=== PATIENT | female | born 1930 | race Caucasian/White ===

== ENCOUNTER 2017-10-24 10:28 | Outpatient (CLI) | payer MEDICARE, MEDICAID ==
--- NOTE | 2017-10-24 15:07 | RAD ---
EXAM: CHEST 2 VIEWS: COMPARISON: 10/03/12, 05/31/14. HISTORY: Dyspnea. FINDINGS: Atherosclerosis of the aorta. Enlarged cardiac silhouette. Pulmonary vessels are prominent. Costop hrenic angles are clear. Lungs are hyperinflated. Interstitial prominence is noted. No pneumothora x. Indeterminate compression in the midthoracic spine. IMPRESSION: 1. Pulmonary vascular congestion with interstitial edema. 2. Indeterminate midthoracic spine compression fracture. POS: [facility]
== END 2017-10-24 10:29 | disposition home or self-care (01) ==
LOC: RAD 10:28
PROVIDERS: ATTEND Internal Medicine
DX: R06.00 Dyspnea, unspecified (principal); J81.1 Chronic pulmonary edema
CPT/HCPCS: 71020

== ENCOUNTER 2017-12-01 08:46 | Outpatient (CLI) | payer MEDICARE, OTHER, MEDICAID ==
[2017-12-01 09:44] LABS: Actual Bicarbonate (HCO3a) 34.8 mEq/L (22-26); Base Excess (BEa) 10.2 mEq/L (0 (+/-) 2.5); CO2 Tension 47.1 mmHg (35.0-45.0); Calcium, Ionized 1.1 mmol/L (1.12-1.30); Hematocrit-ABG 37.6 % (36.0-47.0); Hemoglobin (Hb) 10.4 g/dL (12.0-16.0); O2 Tension (PaO2) 65.8 mmHg (80.0-100.0); pH, Arterial 7.49 (7.35-7.45)
[2017-12-01 09:45] LABS: ALV-art Gradient 25.895 (0-20); Analyzer IN Cardio OR; Puncture Site RBA
--- NOTE | 2017-12-07 15:44 | PFT ---
PATIENT HISTORY: HEIGHT: 66 WEIGHT:262 SMOKER: NEVER HOW LONG: PACKS PER DAY PRODUCTIVE COUGH: LUNG DISEASE: PHYSICIAN INTERPRETATION FINAL REPORT: MODERATE REDUCTION OF EXPIRATORY FLOWS OF VITAL CAPACITY WITH OUT ANY IMPROVEMENT AFTER BRONCHODILATOR TOTAL LUNG CAPACITY LOW, RV DECREASED, TLC IMPRESSION: RESTRICTIVE PERMEABLE IMPAIRMENT. NO REDUCED DIFFUSION CAPACITY Spray Machine Loader: EDISON On Site Nurse: ASH VELEZ
== END 2017-12-01 08:47 | disposition home or self-care (01) ==
LOC: CP 08:46
PROVIDERS: ATTEND Internal Medicine
DX: R05 Cough (principal); Z79.01 Long term (current) use of anticoagulants
CPT/HCPCS: 36415; 82805; 85610; 94060; 94727; 94729

== ENCOUNTER 2018-03-15 12:19 | Inpatient (IN) | payer MEDICARE ==
[2018-03-15 13:17] LABS: #Monocytes 1.2 thou/uL (0.11-0.59); #Neutrophils 6.9 thou/uL (1.40-6.50); %Eosinophils 0.3 % (0.0-10.0); %Lymphocytes 10.7 % (21.0-51.0); Hemoglobin 8.9 g/dL (12.0-16.0); Mean Corpuscular HGB CONC 33.3 g/dL (32.0-36.0); Mean Corpuscular Hemoglobin 31.5 pg (27.0-31.0); Mean Corpuscular Volume 94.7 fl (81.0-99.0); Mean Platelet Volume 8.7 fL (7.4-10.4); Platelet Count 144 thou/uL (130-400); RBC Distribution Width 14.6 % (11.5-14.5); Red Blood Cell (RBC) Count 2.83 mill/uL (4.20-5.40); White Blood Cell (WBC) Count 9.1 thou/uL (4.8-10.8)
[2018-03-15 13:23] LABS: INR-International Normal Ratio 1.9; Prothrombin Time 22.2 SEC (12.0-14.7)
[2018-03-15 13:24] LABS: PTT 56.3 SEC (22.9-36.1)
[2018-03-15 13:47] LABS: CKMB 1.1 ng/mL (0-6.6); Troponin I 0.023 ng/mL (< 0.028)
--- NOTE | 2018-03-15 14:01 | RAD ---
UPRIGHT PORTABLE CHEST ONE VIEW: History: 87-year-old female with history of trouble standing. Comparison: 05-31-14 FINDINGS: Monitor leads overlie the chest. Cardiomegaly with some mild vascular congestion without confluent pn eumonia or overt edema. No significant pleural effusion. IMPRESSION: Cardiomegaly with mild vascular congestion, stable. No evidence of edema, pneumonia, or other acute p rocess. POS: [facility]
[2018-03-15 14:10] LABS: ALT (SGPT) 22 U/L (8-55); AST (SGOT) 42 U/L (5-34); Albumin 3.9 g/dL (3.4-4.8); Alkaline Phosphatase 85 U/L (40-150); Anion Gap 14 mmol/L (10-20); BUN (Urea Nitrogen) 32 mg/dL (9.8-20.1); Bilirubin, Total 1.2 mg/dL (0.2-1.2); CK (CPK) 49 U/L (29-168); Calc. Creatinine Clearance 0 mL/min (70-130); Calcium 10.1 mg/dL (7.8-10.44); Carbon Dioxide 22 mmol/L (23-31); Chloride 101 mmol/L (98-107); Estimated GFR-MDRD 43; Globulin 3.5 g/dL (2.4-3.5); Glucose 109 mg/dL (83-110); Potassium 5.3 mmol/L (3.5-5.1); Protein, Total 7.4 g/dL (6.0-8.3); Sodium 132 mmol/L (136-145)
--- NOTE | 2018-03-15 16:14 | CT ---
CT HEAD NONCONTRAST: History: Altered mental status. FINDINGS: No comparison. There is no evidence of acute intracranial hemorrhage or infarct. Diffuse cortical atr ophy and mild chronic ischemic small vessel disease are apparent. There is no mass effect or shift of midline structures. Calcification is apparent within the arterial structures of the brain base. IMPRESSION: 1. No acute intracranial abnormalities are demonstrated on noncontrast CT head. 2. Atherosclerosis. POS: [facility]
[2018-03-15 18:06] LABS: Troponin I 0.033 ng/mL (< 0.028)
[2018-03-15] MEDS ORDERED: Ondansetron ODT 4 MG TAB SL PRN (18:37)
[2018-03-15] MEDS ORDERED: Acetaminophen 325 MG TAB PO PRN ×2 (18:37→19:10)
[2018-03-15] MEDS ORDERED: Ondansetron HCl/PF 4 MG/2 ML Vial IVP PRN (18:37)
[2018-03-15 19:05] VITALS: BMI 39.6
[2018-03-15] MEDS ORDERED: Bisacodyl 5 MG TAB PO PRN (19:10)
[2018-03-15] MEDS ORDERED: Ondansetron ODT 4 MG TAB PO PRN (19:10)
[2018-03-15] MEDS ORDERED: Sodium Chloride 0.9% 1,000 ML IV SCH (19:15)
[2018-03-15] MEDS ORDERED: Albuterol Sulfate 2.5 mg/3 ml Neb NEB PRN (19:24)
--- NOTE | 2018-03-15 19:31 | PDOC.FPRHP ---
- History of Present Illness Chief Complaint: weakness, sleepy, not acting herself History of Present Illness: Patient is a 87yo F with PMH of CHF, asthma, hypothyroidism, and Afib who presents from [facility] for increased fatigue, weakness, and just not acting herself. Patient is a poor historian but reports generalized weakness and fatigue that started yesterday. She denies CP, SOB, orthopnea, fever, chills, dysuria, or dizziness upon sitting or standing. She does admit to some increased thirst over the last couple of days, stating "I just can't seem to get enough water." - Allergies/Adverse Reactions Allergies Allergy/AdvReac Type Severity Reaction Status Date / Time codeine Allergy Verified 03/15/18 19:18 - Home Medications Medication Instructions Recorded Confirmed Type Budesonide-Formoterol [Symbicort 1 puff INH BID 09/01/13 03/15/18 History 160-4.5] Citalopram [CeleXA] 20 mg PO DAILY 09/01/13 03/15/18 History Docusate [Colace] 100 mg PO BID 09/01/13 03/15/18 History HYDROcodone/Acetaminophen [[place]] 1 tab PO Q6HR PRN 09/01/13 03/15/18 History Dextromethorphan Polistirex 5 ml PO Q12HR PRN 03/15/14 03/15/18 History [Delsym 12 Hour Cough Relief] Ipratropium/Albuterol Sulfate 3 ml NEB BID 03/15/14 03/15/18 History [Duoneb 0.5 mg-3 mg/3 ml Soln] Ventolin HFA Inhaler 2 puff INH Q4H PRN #0 inh 03/18/14 03/15/18 Rx Benzonatate [Tessalon] 100 mg PO TID PRN 05/29/14 03/15/18 History Apixaban [Eliquis] 5 mg PO DAILY 03/15/18 03/15/18 History Azelastine HCl [Azelastine HCl 1 spray EA NARE BID 03/15/18 03/15/18 History 0.15% Nasal [place]] Fluticasone Propionate [Flonase 2 spray EA NARE DAILY 03/15/18 03/15/18 History Allergy Relief] Furosemide [Furosemide] 20 mg PO 1300 03/15/18 03/15/18 History Furosemide [Furosemide] 40 mg PO QAM 03/15/18 03/15/18 History Losartan Potassium [Losartan 25 mg PO DAILY 03/15/18 03/15/18 History Potassium] Metolazone [Metolazone] 5 mg PO DAILY PRN 03/15/18 03/15/18 History Pregabalin [Lyrica] 75 mg PO BID 03/15/18 03/15/18 History Simvastatin [Zocor] 10 mg PO HS 03/15/18 03/15/18 History Spironolactone [Spironolactone] 25 mg PO DAILY 03/15/18 03/15/18 History Zolpidem Tartrate [Zolpidem 5 mg PO HS PRN 03/15/18 03/15/18 History Tartrate] - History PMHx: 1. OA 2. dCHF 3. Asthma 4. Hypothyroidism 5. CAD 6. Breast CA, treated with mastectomy 7. Paroxysmal Afib 8. GERD 9. Insomnia 10. Seasonal Allergies PSHx: 1. Appendectomy 2. Cholecystectomy 3. Laminectomy 4. R Mastectomy FHx: none Social: Denies ETOH, tobacco, and drug use. Lives in [facility]. PCP: Kevin Mota, DO - Review of Systems General: reports: weight/appetite/sleep changes (Increased sleepiness), fatigue. denies: fever/chills Eyes: denies: eye pain, vision changes ENT: denies: nasal congestion, rhinorrhea Respiratory: denies: cough, congestion, shortness of breath, exercise intolerance Cardiovascular: denies: chest pain, palpitation, orthopnea Gastrointestinal: denies: nausea, vomiting, diarrhea, constipation, abdominal pain, GI bleeding Genitourinary: reports: incontinence. denies: dysuria, polyuria Skin: reports: lesions (Patient reports recent herpes zoster on L abdomen and lingering lesions). denies: rashes Musculoskeletal: reports: arthritis/arthralgias. denies: pain Neurological: reports: weakness. denies: numbness, syncope, seizure Psychological: denies: anxiety, depression - Vital signs BP: 118.40 HR: 41 RR: 15 Tmax: 97.4 Pox: 98% on RA Wt: 113kg - Physical Exam Constitutional: NAD, awake, alert and oriented -Constitutional: obese HEENT: normocephalic and atraumatic, PERRLA, EOMI, no scleral icterus, grossly normal vision, grossly normal hearing -HEENT: dry MM Neck: supple, no LAD Chest: no-tender to palpation Heart: normal S1/S2, no murmurs/rubs/gallops, pulses present -Heart: bradycardic, b/l edema (non-pitting) with overlying chronic venous stasis skin changes Lungs: CTAB, no respiratory distress, good air movement, no wheezing Abdomen: soft, non-tender, bowel sounds present Musculoskeletal: normal structure, normal tone Neurological: no focal deficit, CN II-XII intact Skin: no rash/lesions -Skin: poor skin turgor, cap refill > 2 sec, Redness, heat and ttp along b/l legs (R>L) Heme/Lymphatic: no unusual bruising or bleeding Psychiatric: normal mood and affect, intact recent and remote memory FMR H&P: Results - Labs Result Diagrams: 03/15/18 13:11 03/15/18 13:11 Lab results: WBC 9.1 thou/uL (4.8-10.8) 03/15/18 13:11 Hgb 8.9 g/dL (12.0-16.0) L 03/15/18 13:11 Hct 26.8 % (36.0-47.0) L 03/15/18 13:11 MCV 94.7 fl (81.0-99.0) 03/15/18 13:11 Plt Count 144 thou/uL (130-400) 03/15/18 13:11 Neutrophils % 76.0 % (42.0-75.0) H 03/15/18 13:11 Sodium 132 mmol/L (136-145) L 03/15/18 13:11 Potassium 5.3 mmol/L (3.5-5.1) H 03/15/18 13:11 Chloride 101 mmol/L (98-107) 03/15/18 13:11 Carbon Dioxide 22 mmol/L (23-31) L 03/15/18 13:11 BUN 32 mg/dL (9.8-20.1) H 03/15/18 13:11 Creatinine 1.18 mg/dL (0.6-1.1) H 03/15/18 13:11 Glucose 109 mg/dL (83-110) 03/15/18 13:11 Calcium 10.1 mg/dL (7.8-10.44) 03/15/18 13:11 Total Bilirubin 1.2 mg/dL (0.2-1.2) 03/15/18 13:11 AST 42 U/L (5-34) H 03/15/18 13:11 ALT 22 U/L (8-55) 03/15/18 13:11 Alkaline Phosphatase 85 U/L (40-150) 03/15/18 13:11 Creatine Kinase 49 U/L (29-168) 03/15/18 13:11 CK-MB (CK-2) 1.1 ng/mL (0-6.6) 03/15/18 13:11 B-Natriuretic Peptide 359.3 pg/mL (0-100) H 03/15/18 13:11 Serum Total Protein 7.4 g/dL (6.0-8.3) 03/15/18 13:11 Albumin 3.9 g/dL (3.4-4.8) 03/15/18 13:11 - EKG Interpretation EKG: Afib, rate 65. Incomplete RBBB FMR H&P: A/P - Problem List (1) Bradycardia Current Visit: Yes Status: Acute Code(s): R00.1 - BRADYCARDIA, UNSPECIFIED (2) Dehydration Current Visit: Yes Status: Acute Code(s): E86.0 - DEHYDRATION (3) Hyponatremia Current Visit: Yes Status: Acute Code(s): E87.1 - HYPO-OSMOLALITY AND HYPONATREMIA (4) Hyperkalemia Current Visit: Yes Status: Acute Code(s): E87.5 - HYPERKALEMIA (5) Asthma Current Visit: Yes Status: Acute Code(s): J45.909 - UNSPECIFIED ASTHMA, UNCOMPLICATED (6) Hypothyroidism Current Visit: Yes Status: Acute Code(s): E03.9 - HYPOTHYROIDISM, UNSPECIFIED (7) A-fib Current Visit: No Status: Acute Code(s): I48.91 - UNSPECIFIED ATRIAL FIBRILLATION (8) MYLES (acute kidney injury) Current Visit: No Status: Acute Code(s): N17.9 - ACUTE KIDNEY FAILURE, UNSPECIFIED (9) CAD (coronary artery disease) Current Visit: No Status: Acute Code(s): I25.10 - ATHSCL HEART DISEASE OF [place] CORONARY ARTERY W/O ANG PCTRS (10) CHF (congestive heart failure) Current Visit: No Status: Acute Code(s): I50.9 - HEART FAILURE, UNSPECIFIED (11) HTN (hypertension) Current Visit: No Status: Acute Code(s): I10 - ESSENTIAL (PRIMARY) HYPERTENSION (12) Normocytic anemia Current Visit: Yes Status: Acute Code(s): D64.9 - ANEMIA, UNSPECIFIED (13) Hx of breast cancer Current Visit: Yes Status: Acute Code(s): Z85.3 - PERSONAL HISTORY OF MALIGNANT NEOPLASM OF BREAST - Plan Bradycardia - Likely confounding factor to weakness. Hemodynamically stable at this point. Admit to tele with continuous monitoring. Ddx includes sepsis vs SSS - Consult cardiology - UA, urine cx, blood cx. lactic acid to evaluate for infectious source Dehydration - patient with hx of CHF, will give 250ml bolus. - hold morning lasix and spironolactone Elevated Cardiac Enzymes - 0.02 --> 0.03 - trend enzymes, patient with no chest discomfort MYLES - likely 2/2 dehydration - repeat in AM after fluid hydration Hyponatremia - serum and urine osm pending - recheck in the AM Hyperkalemia - hold K supplement - recheck in AM Normocytic Anemia - chronic - evaluate with Fe studies OA - continue home medications CHF - last EF reported in the hospital wnl (2013) - consider repeating echo Asthma - albuterol prn - duonebs scheduled per home regimen Hypothyroidism - continue home synthroid CAD - continue home statin and ASA Paroxysmal Afib - continue home Eliquis FMR H&P: Upper Level - Pertinent history 87 year old white female presents with weakness and lightheadedness sover the last few days. She also reports feeling tired. She was noted to have a heart rate in the 30s at her solution analyst visit last week. She has had a heart rate in the 40s and 50s recently at the nursing. She denies fevers, chills, chest pain, dyspnea, orthopnea, PND, abdominal pain, nausea, vomiting, diarrhea, dysuria, and polyuria PMH CHF, paroxysmal atrial fibrillation, HTN, CAD, hypothyroidism, depression, OA PSH Left mastectomy, hysterectomy, appendectomy, cholecystectomy, laminectomy - Pertinent findings Tmax 97.4 RR 15 HR 44 BP 123/56 O2 sats 95% on room air Weight 112 kg Physical Exam General: NAD. Awake, alert, and oriented x4. Eyes: EOMI, PERRL, nonicteric ENT: MMM, oropharynx CV: Bradycardic. Regular rhythm. No mumrumrs, rubs, gallops. Pulses full and equal in all 4 extremities Respiratory: CTAB. No wheezing, rales, or rhonchi. Breathing unlabored. Abd: NT, ND, no guarding or rebound Extremities: 1+ LE edema bilaterally. Equal movements bilaterally Skin: Left lower extremity slightly erythematous. No palpable lesions. Psych: Mood and affect appropriate. Judgment and insight intact. - Plan Date/Time: 03/15/181925 IKevin DO, have evaluated this patient and agree with findings/plan as outlined by policy intern resident. Pertinent changes/additions are listed here. 87 year old white female p/w: 1) Symptomatic bradycardia - Admit to telemetry. Consult cardiology. Avoid medications that may cause bradycardia. Blood pressure stable. Trend cardiac enzymes and EKG. Check TSH 2) Possible left lower extremity cellulitis - Will start po antibiotics 3) Suspected volume depletion - Gentle fluids. Strict intake and output 4) Generalized weakness - Likely 2/2 #1 but patient does have foul smelling urine. Will get UA and urine culture 5) CHF - Mild pulmonary vascular congestion on CXR but asymptomatic and no other signs of fluid overload. suspect patient is volume down but will get daily weight and monitor intake and output 6) Hyponatremia - Likely hypovolemic. Will monitor after giving IV fluids 7) Hyperkalemia - Mild. Will give gentle iv fluids. Hold potassium supplement 8) HTN - Home meds 9) Mild MYLES - IV fluids 10) Normocytic anemia - Chronic. Patient at baseline 11) CAD - Home meds 12) Atrial fibrillation - continue home anticoagulation 13) Depression - Home meds 14) Hypothyroidism - Home levothyroxine. Check TSH Attending Addendum - Attending Addendum Date/Time: 03/16/18 0022 I personally evaluated the patient and discussed the management with Dr. Davila I agree with the History, Examination, Assessment and Plan documented above with any addition or exceptions noted below- Briefly this is an 87 year old female with h/o hypothyroidism, dCHF, A-fib, and asthma who presented c/o generalized weakness x 1 day. Denies any cough, URI symptoms, dysuria, abdominal pain, chest pain or SOB. Normal appetite but has had some increased thirst over the last few days. PMH/PSH/All/Meds/ ROS reviewed and agree with residents documentation. T 97.8 RR 18 BP 138/63 P49 Exam repeated by me and agree with residents findings. Pertinent labs: WBC=9.1 Hgb=8.9 Hct= 26.8 Opl=128 Mg=260 K=5.3 Qv=346 CO2=22 BUN=32 Cr=1.18 AST=42 ALT=22 TSH= 0.0751 Trop I (-) x 3 U/A= mod LE, 7-10 WBC, 2+bact, 4-6 squames A/P: Generalized weakness- possible etiologies include bradycardia, dehydration, UTI - continue IVF. 2) Bradycardia- will consult cardiology in AM; not on any medications that could cause bradycardia 3) Cellulitis- continue Bactrim DS..
[2018-03-15 19:48] LABS: Iron Binding Capacity, Total 401 mcg/dL (265-497)
[2018-03-15 19:49] LABS: Iron 58 ug/dL (50-170)
[2018-03-15] MEDS ORDERED: Prevnar 13-Val Conj/PF 0.5 ML SYRINGE IM ONE (20:00)
[2018-03-15] MEDS ORDERED: Sodium Chloride 0.9% 250 ML IV SCH (20:00)
[2018-03-15 20:04] LABS: Ferritin 32.98 ng/mL (10-291); Thyroid Stimulating Hormone 0.0751 uIU/mL (0.35-4.94)
[2018-03-15 20:37] LABS: Bilirubin Negative (Negative); Blood, Urine Negative (Negative); Clarity CLOUDY (Clear); Glucose, Urine (Dipstick) Negative (Negative); Leukocyte Moderate (Negative); Nitrite Negative (Negative); Protein, Urine (Dipstick) Negative (Neg-Trace); Specific Gravity, Urine 1.016 (1.002-1.036); Urobilinogen 0.2 mg/dL (0.2-1.0); pH, Urine 5.5 (5.0-9.0)
[2018-03-15 20:40] LABS: Hyaline Casts/LPF 0-3 HYALINE CAST LPF (0-3 Hyaline); Pathc Cast-AUWi Flag 0.29 (0-2.49); RBC/HPF 0-3 HPF (0-3)
[2018-03-15] MEDS: Docusate 100 MG CAP PO SCH (20:42)
[2018-03-15] MEDS: Sulfameth/Trimethoprim DS 800-160mg TAB PO SCH (20:42)
[2018-03-15 20:44] LABS: Troponin I 0.023 ng/mL (< 0.028)
[2018-03-15 20:52] LABS: Bacteria/HPF 2+ HPF (None Seen); Renal Epithelial 0-3 HPF (0-3)
[2018-03-15] MEDS ORDERED: Benzonatate 100 MG CAP PO PRN (22:27)
[2018-03-15 22:52] LABS: Creatinine, Urine 64.3 mg/dL (47-110)
[2018-03-16 06:06] LABS: Anion Gap 15 mmol/L (10-20); BUN (Urea Nitrogen) 34 mg/dL (9.8-20.1); Calc. Creatinine Clearance 60 mL/min (70-130); Calcium 9.5 mg/dL (7.8-10.44); Carbon Dioxide 23 mmol/L (23-31); Chloride 103 mmol/L (98-107); Estimated GFR-MDRD 45; Glucose 95 mg/dL (83-110); Potassium 4.5 mmol/L (3.5-5.1); Sodium 136 mmol/L (136-145)
--- NOTE | 2018-03-16 06:24 | PDOC.FM ---
- Subjective Subjective: Patient doing well this AM. No significant overnight events. Patient states that she is feeling ok this morning. She had blurry vision yesterday which has since resolved. She does not feel dizzy or fatigued. She got some sleep despite being woken up several times during the night. Patient endorses pain in left lower extremity associated with erythema. - Objective MAR Reviewed: Yes Vital Signs & Weight: Vital Signs (12 hours) Temp Pulse Resp BP Pulse Ox 03/16/18 00:00 97.6 F 47 L 16 128/58 L 91 L 03/15/18 23:11 92 L 03/15/18 20:45 97.8 F 49 L 18 138/63 92 L 03/15/18 19:10 95 03/15/18 18:30 97.4 F L 44 L 15 123/56 L 94 L Weight Weight 112.99 kg Result Diagrams: 03/16/18 05:20 03/16/18 05:20 EKG Reviewed by me: Yes Radiology Reviewed by me: No Phys Exam - Physical Examination Constitutional: NAD HEENT: moist MMs Neck: supple Expiratory wheezes bilaterally Bradycardia with irregularly irregular rhythm Gastrointestinal: soft, no distention trace edema, tender to palpation in b/l LE's Neurological: non-focal, moves all 4 limbs Psychiatric: A&O x 3 Skin: cap refill <2 seconds Deviation from normal: Bilateral LE erythema, worse on left. Extends from ankle to midcalf Dx/Plan (1) Bradycardia Code(s): R00.1 - BRADYCARDIA, UNSPECIFIED Status: Acute (2) MYLES (acute kidney injury) Code(s): N17.9 - ACUTE KIDNEY FAILURE, UNSPECIFIED Status: Acute (3) Hypothyroidism Code(s): E03.9 - HYPOTHYROIDISM, UNSPECIFIED Status: Chronic (4) A-fib Code(s): I48.91 - UNSPECIFIED ATRIAL FIBRILLATION Status: Chronic (5) Anemia Code(s): D64.9 - ANEMIA, UNSPECIFIED Status: Chronic (6) CAD (coronary artery disease) Code(s): I25.10 - ATHSCL HEART DISEASE OF [place] CORONARY ARTERY W/O ANG PCTRS Status: Chronic (7) CHF (congestive heart failure) Code(s): I50.9 - HEART FAILURE, UNSPECIFIED Status: Chronic (8) HTN (hypertension) Code(s): I10 - ESSENTIAL (PRIMARY) HYPERTENSION Status: Chronic - Plan Plan: Bradycardia - Likely confounding factor to weakness. Hemodynamically stable at this point. Admit to tele with continuous monitoring. - Ddx includes sepsis vs SSS (no s/s of infection at this time) - Cardiology consulted; appreciate recommendations - UA, urine cx, blood cx pending - Lactic acid to evaluate for infectious source (neg at 0.6) - EKG with incomplete LBBB; old EKG shows incomplete RBBB (2013). No heart block. Atrial fibrillation. - Bradycardia down into 20's overnight with some pauses Dehydration - patient with hx of CHF, will give 250 ml bolus. - hold morning lasix and spironolactone Elevated Cardiac Enzymes - 0.02 --> 0.03 --> -.023 - No chest discomfort MYLES - likely 2/2 dehydration - mildly improved this AM with Cr 1.14 Hyponatremia - Improved this AM Possible cellulitis of LLE - Patient started on bactrim (03/15) - Will continue to monitor - Pain and erythema without warmth - May be venous stasis without infection Possible UTI - Patient asymptomatic - Currently on bactrim for LLE cellulitis - Urine culture pending Hyperkalemia - hold K supplement - nml this AM Normocytic Anemia - chronic - Iron studies show possible iron deficiency anemia - Will supplement with iron and start bowel regimen OA - continue home medications CHF - last EF reported in the hospital wnl (2013) - consider repeating echo Asthma - albuterol prn - duonebs scheduled per home regimen Hypothyroidism - continue home synthroid - free T4 pending - consider adjusting medication dose - medication held for AM dose CAD - continue home statin and ASA Paroxysmal Afib - continue home Eliquis Dispo: Cardiology recommendations appreciated.
[2018-03-16] MEDS: Mometasone/Formoterol 120 PUFF INHALER INH SCH ×2 (06:33→18:42)
[2018-03-16 06:44] LABS: Hemoglobin 8.4 g/dL (12.0-16.0); Lymphocytes 19 % (21-51); MDiff Complete? YES; Mean Corpuscular HGB CONC 32.2 g/dL (32.0-36.0); Mean Corpuscular Hemoglobin 30.7 pg (27.0-31.0); Mean Corpuscular Volume 95.3 fl (81.0-99.0); Mean Platelet Volume 8.5 fL (7.4-10.4); Monocytes 15 % (0-10); Neutrophil 63 % (42-75); PLT Morphology Comment Appears Decreased; Platelet Count 118 thou/uL (130-400); RBC Distribution Width 14.4 % (11.5-14.5); RBC Morphology Normal; Reactive Lymphocytes 3 % (0-10); Red Blood Cell (RBC) Count 2.74 mill/uL (4.20-5.40); Toxic Granulation SLIGHT; White Blood Cell (WBC) Count 4.3 thou/uL (4.8-10.8)
[2018-03-16] MEDS ORDERED: Apixaban 5 MG TAB PO SCH (09:00)
[2018-03-16] MEDS ORDERED: Enoxaparin Sodium 40 MG/0.4 ML SYRINGE SC SCH (09:00)
[2018-03-16] MEDS: Citalopram 20 MG TAB PO SCH (09:43)
[2018-03-16] MEDS: Pregabalin 75 MG CAP PO SCH ×2 (09:43→20:45)
[2018-03-16] MEDS: Docusate 100 MG CAP PO SCH ×2 (09:43→20:45)
[2018-03-16] MEDS: Losartan 25 MG TAB PO SCH (09:43)
[2018-03-16] MEDS: Sulfameth/Trimethoprim DS 800-160mg TAB PO SCH ×2 (09:44→20:45)
[2018-03-16] MEDS: Azelastine 137 MCG/Spray 30 ML NS SCH ×2 (10:31→20:45)
[2018-03-16] MEDS: Fluticasone Propionate Nasal Spray 16 gm Bottle NASAL SCH (10:31)
[2018-03-16 13:37] LABS: Hemoglobin 8.6 g/dL (12.0-16.0); Platelet Count 133 thou/uL (130-400)
--- NOTE | 2018-03-16 13:46 | ADD-PRG ---
This is an addendum to the note of Dr. Blackburn. Ms. Grayson was admitted for just not feeling well. She has been noted, however, to have several epi sodes of her heart rate dropping into the 20s during the night. We have already consulted Cardiology to consider the possibility of placing a pacemaker. I also reviewed Ms. Grayson's medications and p erhaps of some thought should be given to discontinuing some of those medications that are not absolu tely necessary as this can certainly contribute to her not feeling well. In the event, we will await the recommendations of Cardiology. Her labs also reveal anemia with a white count of 9100, hemoglob in is 8.9, her hematocrit is 26.8 with an MCV of 94.7. Chemistry: Sodium 136, potassium 4.5, chlori de 103, bicarbonate 23, BUN 34, creatinine 1.14. Troponins in the indeterminate level. TSH is very low with a free T4 of 1.24. Her ferritin level was at the mid range of low at 32.8. Her TIBC was el evated, serum iron at the low end of normal. All of these are suggestive of iron deficiency anemia. We will discuss initiating therapy as well for this mild anemia.
--- NOTE | 2018-03-16 14:21 | ULT ---
BILATERAL LOWER EXTREMITY VENOUS DUPLEX ULTRASOUND INCLUDING COLOR AND SPECTRAL DOPPLER IMAGING: Date: 03/16/18 HISTORY: 87-year-old female with history of right lower extremity edema and left lower extremity pain and redn ess. TECHNIQUE: Exam performed from groin to ankle including visualized greater saphenous, common femoral, superficia l femoral, profunda femoral, popliteal, trifurcation, and posterior tibial vein regions. Augmentation was very limited because of high pain level. FINDINGS: Phasic flow noted at all levels. Normal compressibility as patient tolerated. No intraluminal thrombu s. IMPRESSION: No evidence for deep venous thrombosis. POS: [facility]
[2018-03-16] MEDS: Furosemide 20 MG TAB PO SCH (14:22)
--- NOTE | 2018-03-16 16:45 | CON ---
DATE OF CONSULTATION: 03/16/2018 HISTORY OF PRESENT ILLNESS: The patient is an 87-year-old woman who presents for evaluation of increasing weakness. The patient has a long history of atrial fibrillation. She has previously undergone a cardiac catheterization in 2002 which revealed mild CAD. The patient has been on chronic Eliquis. She was in her usual state of health when she suddenly had difficulty getting out of bed. She felt extremely weak. The patient did not feel lightheaded or lose consciousness. The patient was sent for further evaluation. The patient denied having any chest discomfort or dyspnea. PAST MEDICAL HISTORY: 1. Coronary artery disease. 2. Atrial fibrillation. 3. Hypertension. 4. Hypothyroidism. 5. History of DVT. 6. GE reflux. PAST SURGICAL HISTORY: Spinal surgery, hysterectomy, appendectomy, cholecystectomy, mastectomy, cataract surgery, and laminectomy. SOCIAL HISTORY: Nonsmoker. She lives in care home. ALLERGIES: CODEINE and PHOSPHATE. MEDICATIONS: See nursing list. REVIEW OF SYSTEMS: No history of easy bruising or bleeding, bright red blood per rectum. PHYSICAL EXAMINATION: GENERAL: This is an obese woman in no acute distress. VITAL SIGNS: Blood pressure was 118/52. NECK: Showed no jugular distention. LUNGS: Clear to auscultation. HEART: Irregular rate and rhythm, normal S1, S2 with 2/6 systolic murmur. ABDOMEN: Distended. EXTREMITIES: Showed mild bilateral edema. SKIN: Warm and dry. NEUROLOGIC: Nonfocal. VASCULAR: Radial pulses 2+. LABORATORY DATA AND IMAGING DATA: Sodium 136, potassium 4.5, chloride 103, bicarbonate 23, BUN 34, creatinine is 1.14, troponin 0.023. BNP was 359, T4 was 1.24. White blood cell count is 4.3, hemoglobin 8.4, hematocrit 26.1. Her platelets are 118. Her INR is 1.9. EKG revealed her to have atrial fibrillation with an incomplete right bundle branch block. Telemetry monitoring revealed atrial fibrillation with very slow ventricular response. IMPRESSION: 1. Atrial fibrillation with a slow ventricular response. 2. Weakness. 3. Hypertension. 4. History of pulmonary embolism. 5. Coronary artery disease. 6. Obesity. This patient presents with weakness. This appears to be secondary to symptomatic slow atrial fibrillation. From a cardiac standpoint, we will discontinue her Eliquis. We will consider placement of an electronic ventricular pacemaker. We will check the patient's echocardiogram. We will follow this patient with you through her hospitalization. AGUSTIN
[2018-03-16] MEDS ORDERED: Simvastatin 5 MG TAB PO SCH (21:00)
[2018-03-17 05:06] LABS: #Eosinphils 0.1 thou/uL (0.0-0.7); #Lymphocytes 0.8 thou/uL (1.20-3.40); #Monocytes 0.7 thou/uL (0.11-0.59); #Neutrophils 3.5 thou/uL (1.40-6.50); %Basophils 0.2 % (0.0-1.0); %Lymphocytes 15.8 % (21.0-51.0); %Monocytes 13.2 % (0.0-10.0); %Neutrophils 68.8 % (42.0-75.0); Hemoglobin 8.2 g/dL (12.0-16.0); Mean Corpuscular HGB CONC 33.3 g/dL (32.0-36.0); Mean Corpuscular Hemoglobin 31.6 pg (27.0-31.0); Mean Corpuscular Volume 94.8 fl (81.0-99.0); Mean Platelet Volume 8.3 fL (7.4-10.4); Platelet Count 140 thou/uL (130-400); RBC Distribution Width 14.3 % (11.5-14.5); Red Blood Cell (RBC) Count 2.59 mill/uL (4.20-5.40); White Blood Cell (WBC) Count 5.1 thou/uL (4.8-10.8)
[2018-03-17 05:19] LABS: Anion Gap 13 mmol/L (10-20); BUN (Urea Nitrogen) 30 mg/dL (9.8-20.1); Calc. Creatinine Clearance 61 mL/min (70-130); Calcium 9.5 mg/dL (7.8-10.44); Carbon Dioxide 24 mmol/L (23-31); Chloride 103 mmol/L (98-107); Estimated GFR-MDRD 46; Glucose 102 mg/dL (83-110); Potassium 4.2 mmol/L (3.5-5.1); Sodium 136 mmol/L (136-145)
[2018-03-17] MEDS: Mometasone/Formoterol 120 PUFF INHALER INH SCH ×2 (06:34→19:03)
--- NOTE | 2018-03-17 06:40 | PDOC.FM ---
- Subjective Subjective: Patient doing well this AM. No significant overnight events. Discussed option for pacemaker this AM. Patient on board with procedure. I was present during conversation with Cardiology. - Objective MAR Reviewed: Yes Vital Signs & Weight: Vital Signs (12 hours) Temp Pulse Resp BP Pulse Ox 03/17/18 06:35 60 03/17/18 04:00 98.3 F 52 L 16 120/56 L 95 03/17/18 00:00 99.0 F 51 L 18 94 L 03/16/18 20:45 98.1 F 59 L 18 94 L 03/16/18 19:40 98.1 F 59 L 18 139/60 94 L 03/16/18 18:41 50 L 16 96 Weight Weight 107.955 kg I&O: 03/15/18 03/16/18 03/17/18 06:59 06:59 06:59 Intake Total 490 1060 Output Total 800 2100 Balance -310 -1040 Result Diagrams: 03/17/18 04:28 03/17/18 04:28 EKG Reviewed by me: No Radiology Reviewed by me: No Phys Exam - Physical Examination Constitutional: NAD HEENT: moist MMs Neck: supple Respiratory: wheezing present Cardiovascular: irregular Bradycardia Gastrointestinal: soft, non-tender, no distention trace edema Neurological: non-focal, moves all 4 limbs Psychiatric: A&O x 3 Deviation from normal: b/l LE erythema L>R. Tenderness to palpation. Dx/Plan (1) Bradycardia Code(s): R00.1 - BRADYCARDIA, UNSPECIFIED Status: Acute (2) MYLES (acute kidney injury) Code(s): N17.9 - ACUTE KIDNEY FAILURE, UNSPECIFIED Status: Acute (3) Hypothyroidism Code(s): E03.9 - HYPOTHYROIDISM, UNSPECIFIED Status: Chronic (4) A-fib Code(s): I48.91 - UNSPECIFIED ATRIAL FIBRILLATION Status: Chronic (5) Anemia Code(s): D64.9 - ANEMIA, UNSPECIFIED Status: Chronic (6) CAD (coronary artery disease) Code(s): I25.10 - ATHSCL HEART DISEASE OF [place] CORONARY ARTERY W/O ANG PCTRS Status: Chronic (7) CHF (congestive heart failure) Code(s): I50.9 - HEART FAILURE, UNSPECIFIED Status: Chronic (8) HTN (hypertension) Code(s): I10 - ESSENTIAL (PRIMARY) HYPERTENSION Status: Chronic - Plan Plan: Symptomatic bradycardia - Cardiology consulted; appreciate recommendations - Urine cx, blood cx pending - EKG with incomplete RBBB; old EKG shows incomplete RBBB (2013). No heart block. Atrial fibrillation. - Echo showed EF 50-55%. Severe pulmonary HTN. IVC dilated. - Plan for pacemaker this AM - Eliquis d/c'd Elevated Cardiac Enzymes - 0.02 --> 0.03 --> -.023 - No chest discomfort MYLES - likely 2/2 dehydration - mildly improved this AM with Cr 1.12 Dehydration, improved - patient with hx of CHF - given 250 mL bolus - improved today Hyponatremia - Improved this AM Possible cellulitis of LLE - Patient started on bactrim (03/15) - Will continue to monitor - Pain and erythema without warmth - May be venous stasis without infection - No evidence of DVT UTI - Patient asymptomatic - Currently on bactrim for LLE cellulitis - Urine culture grew out >100,000 E. coli - Currently on bactrim for which E. coli sensitive to Hyperkalemia - Hold K supplement Normocytic Anemia - chronic - Iron studies show possible iron deficiency anemia - Will supplement with iron and start bowel regimen OA - continue home medications CHF - last EF reported in the hospital wnl (2013) - Echo today showed EF 50-55% with severe pulmonary HTN and dilated IVC Asthma - albuterol prn - duonebs scheduled per home regimen Hypothyroidism - continue home synthroid - free T4 wnl CAD - continue home statin and ASA Paroxysmal Afib - continue home Eliquis Polypharmacy - consider stopping some medications as outpatient Dispo: Cardiology recommendations appreciated. Plan for pacemaker this AM.
--- NOTE | 2018-03-17 08:37 | PDOC.CTH ---
Cardiology Progress Note - Subjective Pt. seen and eval. by me. I have explained to her that the HR is very low and she is not currently taking any medications that would contribute to this. She has chronic atrial fib. and has been on Eliquis. The last dose was yest. AM. She denies any other symptoms except weakness. The HR on the monitor has been down to the 20's. - Objective Vital Signs Temp Pulse Resp BP Pulse Ox 03/17/18 07:15 97.8 F 63 18 117/52 L 92 L 03/17/18 06:35 60 03/17/18 04:00 98.3 F 52 L 16 120/56 L 95 03/17/18 00:00 99.0 F 51 L 18 94 L 03/16/18 20:45 98.1 F 59 L 18 94 L Weight 238 lb 03/16/18 03/17/18 03/18/18 06:59 06:59 06:59 Intake Total 490 1060 Output Total 800 2100 Balance -310 -1040 - Physical Examination General/Neuro: alert & oriented x3 Neck: carotid US brisk Lungs: CTA Heart: other: (bradycardia, irreg.) Extremities: other: (mild erythema of the left lower leg.) - Telemetry Telemetry Rhythm: atrial fib/HR 30's - Labs Result Diagrams: 03/17/18 04:28 03/17/18 04:28 Troponin/CKMB CK-MB (CK-2) 1.1 ng/mL (0-6.6) 03/15/18 13:11 Troponin I 0.023 ng/mL (< 0.028) 03/15/18 20:14 - Assessment/Plan 1.Bradycardia, symptomatic, likely cause of severe weakness. Plan for pacemaker insertion today. I have discussed the procedure indication and risks and she is agreeable. 2. Atial fibrillation. Continue eliquis tomorrow after the pacemaker is inserted. 3. Anemia, uncertain etiology. May need further evaluation. 4. HTN; stable. 5. Mild CAD by cath 2002. She denies chest pain. 6. Pulmonary HTN by echo. Severe TR , Mod MR. 7. Left lower leg cellulitis. continue antibiotics. Review of Systems - Review of Systems Respiratory: reports: no symptoms reported Cardiac (ROS): reports: no symptoms reported ABD/GI: reports: no symptoms reported : reports: no symptoms reported Musculoskeletal: reports: other (generalized weakness.) Neurological: reports: no symptoms reported
[2018-03-17] MEDS: Docusate 100 MG CAP PO SCH ×2 (08:57→20:07)
[2018-03-17] MEDS: Ferrous Sulfate 325 MG TAB PO SCH (08:58)
[2018-03-17] MEDS: Citalopram 20 MG TAB PO SCH (08:58)
[2018-03-17] MEDS: Azelastine 137 MCG/Spray 30 ML NS SCH ×2 (08:58→20:09)
[2018-03-17] MEDS: Losartan 25 MG TAB PO SCH (08:58)
[2018-03-17] MEDS: Pregabalin 75 MG CAP PO SCH ×2 (08:58→20:07)
[2018-03-17] MEDS: Sulfameth/Trimethoprim DS 800-160mg TAB PO SCH ×2 (08:58→20:07)
[2018-03-17] MEDS: Fluticasone Propionate Nasal Spray 16 gm Bottle NASAL SCH (09:01)
[2018-03-17] MEDS ORDERED: Lidocaine 1% (PF) 30 ML VIAL ONE (11:48)
[2018-03-17] MEDS ORDERED: CEFAZOLIN 1 GM VIAL ONE (11:55)
[2018-03-17] MEDS ORDERED: Gentamicin 80 MG/2 ML VIAL ONE (11:55)
[2018-03-17] MEDS ORDERED: CEFAZOLIN/Water 2 GM/20 ML SYRINGE ONE (11:55)
[2018-03-17] MEDS ORDERED: Midazolam HCl 2 mg/2 ml Vial ONE (13:15)
--- NOTE | 2018-03-17 14:03 | ADD-PRG ---
DATE OF SERVICE: 03/17/2018 ADDENDUM This is an addendum to the note of Dr. Ria Blackburn. Ms. Grayson has been seen and evaluated by Dr. Srinivasan. Given her symptomatic bradycardia, she is scheduled for pacemaker placement today per Dr. Srinivasan. She has anemia which appears to be iron deficiency anemia given her iron studies and low ferr itin level. Given the fact that she is almost 88 years old, we will treat the anemia, but we will no t proceed with any further workup of its source. Clinically, Ms. Grayson is doing well and we will a wait pacemaker placement.
--- NOTE | 2018-03-17 14:35 | CCL ---
CARDIOLOGY PROCEDURE NOTE: Date: 03/17/18 PROCEDURE: Pacemaker insertion. INDICATION FOR PROCEDURE: 87-year-old female with symptomatic bradycardia and chronic atrial fibrillation, heart rate in the 20 s and 30s. She was advised to undergo pacemaker insertion. She has tachybrady syndrome. PROCEDURE DETAILS: The patient was taken to cardiac laboratory specialist where she underwent the procedure today without difficultie s or complications. She did require a subclavian venogram for visualization of the subclavian vein, b ut other than that, there were no complications or difficulties encountered. She was implanted with a single chamber pacemaker from [employer], [place], with one single screw-in lead into the right ventri yoni. No complications or difficulties encountered. The pacemaker set with the upper rate at 120 and t he lower rate was set at 60.
--- NOTE | 2018-03-17 15:05 | RAD ---
PORTABLE SEMIUPRIGHT FRONTAL CHEST: Date: 03/17/18 COMPARISON: 03/15/18. HISTORY: Evaluate chest following cardiac device placement. FINDINGS: There is a single lead transvenous pacing device inserted via left subclavian approach, with a lead o verlying the region of the right ventricle. There is no pneumothorax seen. There is prominence of the cardiac silhouette. There is stable atherosclerotic calcification of the aortic arch. No lobar conso lidation or alveolar edema. IMPRESSION: No acute findings. POS: [facility]
[2018-03-17] MEDS: Furosemide 20 MG TAB PO SCH (15:21)
[2018-03-17] MEDS ORDERED: Iopamidol 370 76% 50 ML VIAL FS ONE (15:47)
[2018-03-18 05:49] LABS: #Eosinphils 0.2 thou/uL (0.0-0.7); #Lymphocytes 0.8 thou/uL (1.20-3.40); #Monocytes 0.7 thou/uL (0.11-0.59); #Neutrophils 3.6 thou/uL (1.40-6.50); %Basophils 0.2 % (0.0-1.0); %Eosinophils 3.4 % (0.0-10.0); %Lymphocytes 14.7 % (21.0-51.0); %Monocytes 13.4 % (0.0-10.0); %Neutrophils 68.3 % (42.0-75.0); Hemoglobin 7.9 g/dL (12.0-16.0); Mean Corpuscular HGB CONC 32.4 g/dL (32.0-36.0); Mean Corpuscular Hemoglobin 30.9 pg (27.0-31.0); Mean Corpuscular Volume 95.4 fl (81.0-99.0); Mean Platelet Volume 7.9 fL (7.4-10.4); Platelet Count 148 thou/uL (130-400); RBC Distribution Width 14.5 % (11.5-14.5); Red Blood Cell (RBC) Count 2.55 mill/uL (4.20-5.40); White Blood Cell (WBC) Count 5.3 thou/uL (4.8-10.8)
--- NOTE | 2018-03-18 05:52 | PDOC.FM ---
- Subjective Subjective: This morning patient states she is feeling well. She has mild soreness ranked at 3/10 at the site of the incision for the pacemaker. She denies pain in the leg or burning with urination or increased frequency. - Objective Vital Signs & Weight: Vital Signs (12 hours) Temp Pulse Resp BP BP Pulse Ox 03/18/18 04:00 98.3 F 64 17 122/52 L 93 L 03/18/18 00:00 98.2 F 60 18 101/45 L 95 03/17/18 20:00 97.9 F 61 20 125/56 L 98 03/17/18 19:06 95 03/17/18 19:04 95 03/17/18 19:03 94 L Weight Weight 107.955 kg I&O: 03/16/18 03/17/18 03/18/18 06:59 06:59 06:59 Intake Total 490 1060 480 Output Total 800 2100 1150 Balance -310 1040 -670 Result Diagrams: 03/18/18 04:58 03/18/18 04:58 <Rishi Caballero - Last Filed: 03/18/18 09:54> - Objective Vital Signs & Weight: Vital Signs (12 hours) Temp Pulse Resp BP BP Pulse Ox 03/18/18 08:08 99.2 F 63 20 113/66 93 L 03/18/18 07:08 62 12 03/18/18 07:02 93 L 03/18/18 06:59 62 12 03/18/18 04:00 98.3 F 64 17 122/52 L 93 L 03/18/18 00:00 98.2 F 60 18 101/45 L 95 Weight Weight 108.681 kg I&O: 03/17/18 03/18/18 03/19/18 06:59 06:59 06:59 Intake Total 1060 720 Output Total 2100 1750 Balance -1040 -1030 Result Diagrams: 03/18/18 04:58 03/18/18 04:58 <Vanessa Cuba - Last Filed: 03/18/18 10:49> Phys Exam - Physical Examination Constitutional: NAD HEENT: PERRLA, moist MMs Neck: no nodes, full ROM Respiratory: no wheezing, clear to auscultation bilateral Cardiovascular: RRR, no significant murmur Gastrointestinal: soft, non-tender, no distention, positive bowel sounds Musculoskeletal: pulses present, edema present (trace) Neurological: non-focal, moves all 4 limbs Psychiatric: normal affect, A&O x 3 Skin: no rash, cap refill <2 seconds Deviation from normal: redness on LLE appears improved, mild pain to palpation <Rishi Caballero - Last Filed: 03/18/18 09:54> Dx/Plan (1) Asthma Code(s): J45.909 - UNSPECIFIED ASTHMA, UNCOMPLICATED Status: Acute (2) Bradycardia Code(s): R00.1 - BRADYCARDIA, UNSPECIFIED Status: Acute (3) Dehydration Code(s): E86.0 - DEHYDRATION Status: Acute (4) Normocytic anemia Code(s): D64.9 - ANEMIA, UNSPECIFIED Status: Acute (5) Hypothyroidism Code(s): E03.9 - HYPOTHYROIDISM, UNSPECIFIED Status: Chronic (6) Hypokalemia Code(s): E87.6 - HYPOKALEMIA Status: Acute (7) UTI (urinary tract infection) Status: Acute (8) A-fib Code(s): I48.91 - UNSPECIFIED ATRIAL FIBRILLATION Status: Chronic (9) CAD (coronary artery disease) Code(s): I25.10 - ATHSCL HEART DISEASE OF [place] CORONARY ARTERY W/O ANG PCTRS Status: Chronic (10) CHF (congestive heart failure) Code(s): I50.9 - HEART FAILURE, UNSPECIFIED Status: Chronic (11) HTN (hypertension) Code(s): I10 - ESSENTIAL (PRIMARY) HYPERTENSION Status: Chronic - Plan Plan: # Symptomatic bradycardia - Cardiology consulted; appreciate recommendations - Urine cx positive for ecoli - EKG with incomplete RBBB; old EKG shows incomplete RBBB (2013). No heart block. Atrial fibrillation. - Echo showed EF 50-55%. Severe pulmonary HTN. IVC dilated. - Pacemaker placed yesterday, HR 60s overnight on tele Elevated Cardiac Enzymes - 0.02 --> 0.03 --> -.023 - No chest discomfort MYLES - likely 2/2 dehydration Hyponatremia - Improved this AM Possible cellulitis of LLE - Continue with bactrim - Will continue to monitor - Pain and erythema without warmth - May be venous stasis without infection - No evidence of DVT UTI - Patient asymptomatic - Currently on bactrim for LLE cellulitis - Urine culture grew out >100,000 E. coli - Currently on bactrim for which E. coli sensitive to Hyperkalemia - Hold K supplement - resolved Normocytic Anemia - chronic - Iron studies show possible iron deficiency anemia - Will supplement with iron and start bowel regimen - outpatient workup, patient is DNR, unlikely to benefit from colonoscopy OA - continue home medications CHF - last EF reported in the hospital wnl (2013) - Echo today showed EF 50-55% with severe pulmonary HTN and dilated IVC Asthma - albuterol prn - duonebs scheduled per home regimen Hypothyroidism - continue home synthroid - free T4 wnl CAD - continue home statin and ASA Paroxysmal Afib - continue home Eliquis Dispo: d/c back to [facility] today <Rishi aCballero - Last Filed: 03/18/18 09:54> Attending Addendum - Attending Addendum Date/Time: 03/18/18 1047 I personally evaluated the patient and discussed the management with Dr. Caballero. I agree with the History, Examination, Assessment and Plan documented above with any addition or exceptions noted below. The patient has mild soreness from pacemaker insertion. She is feeling much better. The patient was reported to have wheezing this morning but lung sounds are at her baseline when I listened with very few wheezes noted. The patient will continue po antibiotics for cellulitis and uti. She will return to [facility] and will work with therapy. <Vanessa Cuba - Last Filed: 03/18/18 10:49>
[2018-03-18] MEDS ORDERED: Levothyroxine 150 MCG TAB PO SCH ×2 (06:00→09:00)
[2018-03-18 06:02] LABS: Anion Gap 10 mmol/L (10-20); BUN (Urea Nitrogen) 25 mg/dL (9.8-20.1); Calc. Creatinine Clearance 60 mL/min (70-130); Calcium 9.7 mg/dL (7.8-10.44); Carbon Dioxide 27 mmol/L (23-31); Chloride 103 mmol/L (98-107); Estimated GFR-MDRD 47; Glucose 99 mg/dL (83-110); Potassium 4.2 mmol/L (3.5-5.1); Sodium 136 mmol/L (136-145)
[2018-03-18] MEDS: Mometasone/Formoterol 120 PUFF INHALER INH SCH (07:08)
[2018-03-18] MEDS: Docusate 100 MG CAP PO SCH (08:10)
[2018-03-18] MEDS: Ferrous Sulfate 325 MG TAB PO SCH (08:10)
[2018-03-18] MEDS: Citalopram 20 MG TAB PO SCH (08:10)
[2018-03-18] MEDS: Losartan 25 MG TAB PO SCH (08:11)
[2018-03-18] MEDS: Pregabalin 75 MG CAP PO SCH (08:11)
[2018-03-18] MEDS: Fluticasone Propionate Nasal Spray 16 gm Bottle NASAL SCH (08:12)
[2018-03-18] MEDS: Sulfameth/Trimethoprim DS 800-160mg TAB PO SCH (08:12)
[2018-03-18] MEDS: Azelastine 137 MCG/Spray 30 ML NS SCH (08:12)
--- NOTE | 2018-03-18 09:17 | PDOC.CTH ---
Cardiology Progress Note - Subjective Reports feeling well, denies shortness of breath. Ready to go home. Describes incisional pain to left shoulder PM insertion site. - Objective Vital Signs Temp Pulse Resp BP BP Pulse Ox 03/18/18 08:08 99.2 F 63 20 113/66 93 L 03/18/18 07:08 62 12 03/18/18 07:02 93 L 03/18/18 06:59 62 12 03/18/18 04:00 98.3 F 64 17 122/52 L 93 L 03/18/18 00:00 98.2 F 60 18 101/45 L 95 Weight 239 lb 9.6 oz 03/17/18 03/18/18 03/19/18 06:59 06:59 06:59 Intake Total 1060 720 Output Total 2100 1750 Balance -1040 -1030 - Physical Examination General/Neuro: alert & oriented x3, NAD Neck: no JVD present Lungs: unlabored respirations, other: (diffuse exp wheezing) Heart: RRR Abdomen: no HSM, NT/ND Extremities: other: (erythema to LLE) - Telemetry Telemetry Rhythm: V-Paced 60s - Labs Result Diagrams: 03/18/18 04:58 03/18/18 04:58 Troponin/CKMB CK-MB (CK-2) 1.1 ng/mL (0-6.6) 03/15/18 13:11 Troponin I 0.023 ng/mL (< 0.028) 03/15/18 20:14 - Assessment/Plan 1. Tachybrady syndrome, symptomatic-s/p single-chamber PM insertion 03/17, now V- Paced HR 60s. 2. Atrial fibrillation, chronic-restart Eliquis 5mg BID today 3. Anemia, unknown etiology-Hgb 7.9/HCT 24.4, managed by primary team, started on oral Fe+ 4. HTN-stable on current regimen 5.CAD-mild per [facility] 2002-resume statin & ASA, on ARB 6. Pulmonary HTN by echo. Severe TR , Mod MR. Echo this admission EF 50-55% 7. Left lower leg cellulitis-continue antibiotics, managed by primary team 8. Hx pulmonary embolism Okay to discharge to [place], follow-up with in 10 days.
[2018-03-18 12:14] VITALS: BP 121/56; TEMP 98.4
[2018-03-18] MEDS: Furosemide 20 MG TAB PO SCH (12:33)
--- NOTE | 2018-03-18 15:43 | DIS-2 ---
DATE OF ADMISSION: 03/15/2018 DATE OF DISCHARGE: 03/18/2018 RESIDENT: Rishi Caballero MD ADMITTING ATTENDING: Abiodun Myers MD DISCHARGE ATTENDING: Vanessa Cuba M.D. CONSULTS: Cardiology. PROCEDURE: Pacemaker placement. PRIMARY DIAGNOSIS: Altered mental status secondary to symptomatic bradycardia. SECONDARY DIAGNOSES: Asthma, dehydration, normocytic anemia, hypothyroidism, hypokalemia, urinary tr act infection, atrial fibrillation, coronary artery disease, congestive heart failure, hypertension. DISCHARGE MEDICATIONS: Apixaban 5 mg b.i.d., docusate 100 mg b.i.d., iron 325 mg daily, MiraLax, Parker trim 1 tablet b.i.d. for 7 days, albuterol p.r.n., Tessalon p.r.n., Symbicort, Celexa 20 mg daily, La six 20 mg daily, DuoNebs b.i.d., Synthroid 150 mcg, losartan 25 mg daily, Lyrica 75 mg p.o. b.i.d., N orco 5 mg q.6 hours p.r.n., metolazone 5 mg daily, simvastatin 10 mg nightly, spironolactone 25 mg, A mbien 5 mg. HISTORY OF PRESENT ILLNESS AND HOSPITAL COURSE: The patient is an 87-year-old female with past medic al history of CHF, asthma, hypothyroidism and atrial fibrillation, who presented with increased fatig ue and weakness. She is a poor historian and stated generalized weakness and fatigue started one day ago. She denied chest pain, shortness of breath, orthopnea, fever, chills, dysuria or dizziness upo n sitting or standing. The patient was found to have symptomatic bradycardia with heart rate in the 20s at times, noted on t elemetry. The patient was taken for pacemaker placement by Dr. Srinivasan. After placement of pacemaker, there were no complications and the patient's heart rate was in the 60s on telemetry. The patient wa s also found to have an E. coli urinary tract infection on urine culture. The patient was treated wi th Bactrim. The patient had left lower extremity erythema secondary to dermis stasis versus cellulit is. The patient was treated with Bactrim for the UTI, which will cover the possible cellulitis as we ll. The patient was found to have symptomatic normocytic anemia, likely secondary to iron deficiency . Risks and benefits of colonoscopy discussed with the patient. The patient will follow up with [facility] provider as an outpatient to discuss this in the future. DISPOSITION: Stable. DISCHARGE INSTRUCTIONS: 1. Location: [place]. 2. Diet: Heart healthy. 3. Activity: As tolerated. 4. Followup: Follow up with Dr. Srinivasan in 7-14 days, Dr. Cuba in 2-3 days, cardiac rehabilitation.
--- NOTE | 2018-03-19 08:48 | EKG ---
Test Reason : Blood Pressure : / mmHG Vent. Rate : 045 BPM Atrial Rate : 357 BPM P-R Int : 000 ms QRS Dur : 108 ms QT Int : 470 ms P-R-T Axes : 000 063 045 degrees QTc Int : 406 ms Atrial fibrillation with slow ventricular response Incomplete right bundle branch block Abnormal ECG When compared with ECG of 15-MAR-2018 12:28, (Unconfirmed) QT has shortened Confirmed by SARIAH MOROCHO, TERESITA ([id number]) on 03/19/2018 8:47:54 AM Referred By: ANKUR Confirmed By:TERESITA ROLLE MD
== END 2018-03-18 13:09 | DRG 243 ==
LOC: ERS 12:19 → 2NO 18:17
PROVIDERS: ADMIT Family Medicine; ATTEND Family Medicine
PROC: 0JH605Z Insertion of Pacemaker, Single Chamber Rate Responsive into Chest Subcutaneous Tissue and Fascia, Open Approach (ICD-10-PCS; principal; 2018-03-17)
PROC: 02HK3JZ Insertion of Pacemaker Lead into Right Ventricle, Percutaneous Approach (ICD-10-PCS; 2018-03-17)
DX: R00.1 Bradycardia, unspecified (principal); L03.116 Cellulitis of left lower limb; I27.20 Pulmonary hypertension, unspecified; I50.9 Heart failure, unspecified; I08.1 Rheumatic disorders of both mitral and tricuspid valves; E87.1 Hypo-osmolality and hyponatremia; N39.0 Urinary tract infection, site not specified; I48.2 Chronic atrial fibrillation; Z66 Do not resuscitate; I48.91 Unspecified atrial fibrillation; R41.82 Altered mental status, unspecified; E03.9 Hypothyroidism, unspecified; E87.6 Hypokalemia; I25.10 Atherosclerotic heart disease of native coronary artery without angina pectoris; B96.20 Unspecified Escherichia coli [E. coli] as the cause of diseases classified elsewhere; I87.2 Venous insufficiency (chronic) (peripheral); D50.9 Iron deficiency anemia, unspecified; Z79.01 Long term (current) use of anticoagulants; J45.909 Unspecified asthma, uncomplicated; E86.0 Dehydration; M19.90 Unspecified osteoarthritis, unspecified site; Z90.12 Acquired absence of left breast and nipple
CPT/HCPCS: 33207; 36005; 36415; 36416; 70450; 71045; 75820; 80048; 80053; 81001; 82550; 82553; 82570; 82728; 83540; 83550; 83605; 83880; 83930; 83935; 84300; 84439; 84443; 84484; 85025; 85610; 85730; 87077; 87086; 87186; 90471; 90670; 93005; 93010; 93306; 93798; 93970; 94640; 94664; 99152; A4216; C1786; C1898; G0009; G8978-GP-CM; G8979-GP-CK; J0690; J1580; J2001; J2250; J3490; J7620

== ENCOUNTER 2018-06-11 09:54 | Inpatient (IN) | payer MEDICARE, OTHER, MEDICAID ==
--- NOTE | 2018-06-11 11:45 | CT ---
CT BRAIN: Date: 06-11-18 Provided Clinical History: Trauma. FINDINGS: Comparison is made with the examination performed 03-15-18. The ventricular system appears normal in size and morphology. There is no evidence for intracranial h emorrhage or mass effect. Chronic microvascular ischemic changes are redemonstrated, stable. Opacific ation of bilateral mastoid air cells again seen. IMPRESSION: No evidence for intracranial hemorrhage or mass effect. POS: [facility]
--- NOTE | 2018-06-11 11:46 | CT ---
CERVICAL SPINE CT WITHOUT IV CONTRAST: History: 87-year-old female with history of cervical injury following trauma, falling out of bed. FINDINGS: There is fairly extensive opacification of both mastoids. Severe bone demineralization. Significant g eneralized spondylosis. No evidence for acute fracture or facet dislocation. IMPRESSION: No fracture or facet dislocation. Bony demineralization and spondylosis. Partial opacification both m astoids. POS: [facility]
--- NOTE | 2018-06-11 11:56 | RAD ---
FRONTAL PELVIS TWO VIEWS LEFT HIP: Date: 06-11-18 Provided Clinical History: Left leg pain status post fall. FINDINGS: Diffuse regional osteopenia. There is a partially visualized displaced fracture of the left femoral s haft. No additional fracture is evident. Alignment appears anatomic. IMPRESSION: Partially visualized left femoral shaft fracture. POS: [facility]
[2018-06-11 11:57] LABS: #Lymphocytes 0.4 thou/uL (1.20-3.40); #Monocytes 0.8 thou/uL (0.11-0.59); #Neutrophils 8.7 thou/uL (1.40-6.50); %Basophils 0.1 % (0.0-1.0); %Eosinophils 0.2 % (0.0-10.0); %Lymphocytes 4.5 % (21.0-51.0); %Monocytes 7.8 % (0.0-10.0); %Neutrophils 87.5 % (42.0-75.0); Hemoglobin 5.6 g/dL (12.0-16.0); Mean Corpuscular HGB CONC 32.5 g/dL (32.0-36.0); Mean Corpuscular Hemoglobin 25.9 pg (27.0-31.0); Mean Corpuscular Volume 79.7 fL (78.0-98.0); Mean Platelet Volume 8.3 fL (7.4-10.4); Platelet Count 175 thou/uL (130-400); RBC Distribution Width 15.6 % (11.5-14.5); Red Blood Cell (RBC) Count 2.16 mill/uL (4.20-5.40); White Blood Cell (WBC) Count 9.9 thou/uL (4.8-10.8)
--- NOTE | 2018-06-11 11:57 | RAD ---
CHEST ONE VIEW PORTABLE: History: 87-year-old female with history of fall from sitting on the side of the bed with left arm and left le g pain, and cough. FINDINGS: Left ICD. Cardiomegaly. Mild increased linear and interstitial markings bilaterally. No confluent pne umonia, overt edema, or other acute process. Vertically height loss of at least one thoracic vertebra l body. IMPRESSION: Cardiomegaly without confluent pneumonia or overt edema. POS: [facility]
[2018-06-11 12:14] LABS: ALT (SGPT) 14 U/L (8-55); AST (SGOT) 23 U/L (5-34); Albumin 3.8 g/dL (3.4-4.8); Alkaline Phosphatase 105 U/L (40-150); Anion Gap 18 mmol/L (10-20); BUN (Urea Nitrogen) 78 mg/dL (9.8-20.1); Bilirubin, Total 0.9 mg/dL (0.2-1.2); Calc. Creatinine Clearance 0 mL/min (70-130); Calcium 9.1 mg/dL (7.8-10.44); Carbon Dioxide 26 mmol/L (23-31); Chloride 82 mmol/L (98-107); Estimated GFR-MDRD 29; Globulin 2.2 g/dL (2.4-3.5); Glucose 139 mg/dL (83-110); Potassium 3.7 mmol/L (3.5-5.1); Sodium 122 mmol/L (136-145)
[2018-06-11 12:15] LABS: CKMB 2.4 ng/mL (0-6.6)
--- NOTE | 2018-06-11 12:20 | RAD ---
2 VIEWS LEFT FEMUR: Date: 06/11/18 PROVIDED CLINICAL HISTORY: Left leg pain. FINDINGS: There is an obliquely oriented displaced fracture of the left femoral diaphysis. There is a segmental component involving the mid to distal left femoral diaphysis without displacement. There is prominen t anterior displacement of the mid to distal femoral shaft with respect to the proximal shaft. Degene rative changes are seen at the left knee. IMPRESSION: Segmental fracture of the mid to distal left femur with displacement involving the proximal component . POS: [facility]
--- NOTE | 2018-06-11 12:26 | RAD ---
LEFT KNEE 2 VIEWS: Date: 06/11/18 HISTORY: 87-year-old female with history of femoral fracture. FINDINGS: Limited 2 view evaluation demonstrates severe tricompartment arthrosis with marked joint space loss. Severe bone demineralization. Markedly displaced, comminuted distal femoral shaft fracture. IMPRESSION: Severe degenerative changes. Bone demineralization. Comminuted distal femoral shaft fracture. POS: [facility]
[2018-06-11 12:40] LABS: Bilirubin Negative (Negative); Blood, Urine Negative (Negative); Clarity CLOUDY (Clear); Glucose, Urine (Dipstick) Negative (Negative); Leukocyte Small (Negative); Nitrite Positive (Negative); Protein, Urine (Dipstick) Negative (Neg-Trace); Urobilinogen 0.2 mg/dL (0.2-1.0); pH, Urine 6.5 (5.0-9.0)
[2018-06-11 12:42] LABS: Bacteria/HPF 2+ HPF (None Seen); Hyaline Casts/LPF 0-3 HYALINE CAST LPF (0-3 Hyaline); Pathc Cast-AUWi Flag 0.14 (0-2.49); RBC/HPF 0-3 HPF (0-3); WBC/HPF 0-3 HPF (0-3)
[2018-06-11] MEDS ORDERED: HYDROcodone/Acetaminophen 5/325 mg Tablet PO PRN ×3 (13:42→13:54)
[2018-06-11] MEDS ORDERED: Ondansetron HCl/PF 4 MG/2 ML Vial IVP PRN (13:50)
[2018-06-11] MEDS ORDERED: Ondansetron ODT 4 MG TAB PO PRN (13:50)
[2018-06-11] MEDS ORDERED: Dextrose 50% Abboject 50 ML SYRINGE SLOW IVP PRN (13:50)
[2018-06-11] MEDS ORDERED: Dextrose 5% in Water 1,000 ML IV PRN (13:50)
[2018-06-11] MEDS ORDERED: PROVENTIL INHALER 6.7 G (200 INHALATIONS) INH PRN (13:54)
[2018-06-11 16:35] LABS: CKMB 3.4 ng/mL (0-6.6); Troponin I 0.072 ng/mL (< 0.028)
[2018-06-11] MEDS: HYDROcodone/Acetaminophen 5/325 mg Tablet PO SCH ×2 (17:53→20:40)
[2018-06-11 18:01] LABS: Bilirubin Negative (Negative); Blood, Urine Negative (Negative); Clarity CLEAR (Clear); Glucose, Urine (Dipstick) Negative (Negative); Leukocyte Moderate (Negative); Nitrite Negative (Negative); Protein, Urine (Dipstick) Negative (Neg-Trace); Specific Gravity, Urine 1.007 (1.002-1.036); Urobilinogen 0.2 mg/dL (0.2-1.0); pH, Urine 6.5 (5.0-9.0)
[2018-06-11 18:03] LABS: Bacteria/HPF 2+ HPF (None Seen); Hyaline Casts/LPF 0-3 HYALINE CAST LPF (0-3 Hyaline); Pathc Cast-AUWi Flag 0.29 (0-2.49); RBC/HPF 0-3 HPF (0-3); Squamous Epithelial 0-3 HPF (0-3)
--- NOTE | 2018-06-11 18:35 | HP ---
DATE OF ADMISSION: 06/11/2018 ATTENDING PHYSICIAN: Dr. Barahona. TRAUMA ACTIVATION: Not applicable. HISTORY OF PRESENT ILLNESS: This is an 87-year-old female, who presented to [place] [facility] via EMS [facility] post fall at her alf. Per patient, she was standing, getting out of bed this morning w hen she became unsteady and fell from the standing position on the edge of her bed. She landed prima rily on her left side. She had immediate onset of left leg pain. She states that she hit her head, but denies loss of consciousness. She was evaluated in our emergency room and found to have an isola jose martin mid shaft left femur fracture. Initial blood pressure reported by EMS was a systolic of 80, but her blood pressure has since improved to systolic of greater than 108. She was found to have a hemog lobin of 5.6, although her baseline is approximately 8. Two units of PRBC have been ordered at this time. Upon my evaluation, she has a chief complaint of left leg pain, but otherwise vocalizes no com plaint. Pain is worsened with movement and improved after placement of a knee immobilizer. ALLERGIES: The patient denies any allergies. 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 HOME MEDICATIONS: Include Ambien 5 mg p.o. at bedtime, Colace 100 mg p.r.n., Zocor 10 mg p.o. daily, Celexa 20 mg p.o. daily, Centrum multivitamin, vitamin B12, Synthroid 150 mcg p.o. daily, losartan 2 5 mg p.o. daily, Protonix 40 mg p.o. daily, vitamin D3 supplement, metolazone 5 mg p.o. daily p.r.n. for weight gain greater than 2 pounds, Eliquis 5 mg p.o. daily, spironolactone 25 mg daily, Lyrica 75 mg b.i.d., MiraLax daily, Tylenol p.r.n., Singulair 10 mg daily, loratadine 10 mg daily, Lasix 40 mg daily, Delsym b.i.d. p.r.n., [place] 5/325 one tab p.r.n. q.6 hours for pain, Tessalon 100 mg p.r.n. for cough, Mucinex p.r.n., Symbicort inhaler 2 puffs daily, Ventolin inhaler 2 puffs q.4 hours p.r.n. , fluticasone nasal spray p.r.n., DuoNeb p.r.n. PAST SURGICAL HISTORY: Significant for appendectomy, tonsillectomy, hysterectomy, back surgery, chol ecystectomy, and left mastectomy. SOCIAL HISTORY: The patient is a resident at [facility]. She is wheelchair bound at [facility] secondary to knee pain. Denies alcohol, tobacco or illicit drug use. FAMILY HISTORY: Noncontributory in this patient. REVIEW OF SYSTEMS: A 10-point review of systems was obtained and essentially negative except as kelley cated in HPI. The patient specifically denies fevers, chills, nausea, vomiting, shortness of breath, chest pain, dizziness, presyncopal symptoms, syncope, abdominal pain, changes in bowel or bladder capps bits, increased lower extremity edema. PHYSICAL EXAMINATION: VITAL SIGNS: Most recent vital signs, blood pressure 109/47, pulse 61, respiration rate 18, temperat ure 97.5, O2 sat 97% on 2 liters nasal cannula. GENERAL: Elderly obese appearing female, in no acute distress, resting in bed. HEAD: Normocephalic, atraumatic. EYES: Pupils are PERRL. Extraocular movements are intact. NECK: Supple. Trachea is midline. CHEST: Atraumatic. No tenderness to palpation. Normal work of breathing. Symmetric rise. CARDIOVASCULAR: Regular rate and rhythm. There is a 2/6 systolic murmur. MUSCULOSKELETAL/BACK: Reported as within normal limits. EXTREMITIES: Bilateral upper extremities within normal limits. Bilateral lower extremities with ten se edema. Left lower extremity in a knee immobilizer. She has good capillary refill distal to the s kolton of her injury. NEUROLOGIC: GCS is 15. No focal deficit is noted. LABORATORY DATA: Cortisol 22.40. WBC 9.9, hemoglobin 5.6, hematocrit 17.2, platelet count 175. Sod ium 122, potassium 3.7, chloride 82, carbon dioxide 26, BUN 78, creatinine 1.66, glucose 139. Tropon in 0.030. CK-MB 2.4. Urinalysis significant for small amount of leukocyte esterase, positive for ni trites, 2+ bacteria with 4-6 squamous cells. EKG with paced rhythm and no obvious ischemia. RADIOGRAPHIC FINDINGS: CT of the C-spine was negative for acute fracture or dislocation. Chest x-ra y demonstrated cardiomegaly with coarse interstitial markings, but no evidence of consolidation. CT of the brain was negative for acute intracranial hemorrhage. X-ray of the pelvis demonstrated a left femoral shaft fracture and osteopenia. X-ray of the hip demonstrated the same. X-ray of the knee s howed a distal femoral shaft fracture. X-ray of the femur demonstrated the same per radiology read. ASSESSMENT: 1. Status post mechanical fall. 2. Mid to distal left femur fracture. 3. Acute traumatic pain. 4. History of chronic pain on chronic narcotics. 5. History of tachybrady syndrome, atrial fibrillation, status post permanent pacemaker, on chronic anticoagulation. 6. History of pulmonary embolism. 7. History of congestive heart failure and pulmonary hypertension. 8. History of hypertension. 9. History of breast cancer. 10. Suspected urinary tract infection, present on admission. 11. Acute kidney injury, present on admission. 12. Acute on chronic anemia secondary to blood loss, present on admission. 13. Hypotension, now improved with IV fluids. 14. Hyponatremia. 15. Elevated troponin. PLAN: Admit to IMCU. Transfused 2 units of packed red blood cells and recheck H&H. Gentle IV fluid hydration once patient is n.p.o. I have discussed the case with Orthopedic Surgery, who planned for operative intervention tomorrow after Eliquis at that time to wash out. Empiric antibiotics for klaus pected urinary tract infection. Hold spironolactone in light of hyponatremia. The patient should be on a fluid restricted diet. Perioperative pain management with p.o. and IV analgesics. Postoperati ve PT and OT. DVT and gastritis prophylaxis as appropriate. Trend troponins. The patient recently had an echocardiogram with a normal EF. If troponins continue to elevate, we will repeat echocardiog luann and consult Cardiology. A.m. labs. Plans for admission were discussed with the patient and joanna garrison who were at bedside. All questions were answered at the time of this dictation. The patient has an out of hospital DO NOT RESUSCITATE, which the family wishes to keep in place during her hospitaliz ation. The patient was discussed with trauma attending.
[2018-06-11] MEDS: Mometasone/Formoterol 120 PUFF INHALER INH SCH (18:55)
[2018-06-11] MEDS: Sulfameth/Trimethoprim DS 800-160mg TAB PO SCH (20:38)
[2018-06-11] MEDS: Docusate 100 MG CAP PO SCH (20:38)
[2018-06-11] MEDS: Simvastatin 5 MG TAB PO SCH (20:38)
[2018-06-11] MEDS: Pregabalin 75 MG CAP PO SCH (20:39)
[2018-06-11 22:19] LABS: Hemoglobin 7.1 g/dL (12.0-16.0)
[2018-06-11 22:44] LABS: CKMB 2.8 ng/mL (0-6.6); Troponin I 0.103 ng/mL (< 0.028)
[2018-06-12] MEDS: Sodium Chloride 0.9% 1,000 ML IV SCH ×2 (00:24→10:33)
[2018-06-12] MEDS: HYDROcodone/Acetaminophen 5/325 mg Tablet PO SCH ×4 (01:44→22:18)
[2018-06-12 02:31] LABS: #Eosinphils 0.1 thou/uL (0.0-0.7); #Lymphocytes 0.8 thou/uL (1.20-3.40); #Neutrophils 5.4 thou/uL (1.40-6.50); %Basophils 0.3 % (0.0-1.0); %Eosinophils 1.6 % (0.0-10.0); %Lymphocytes 11.3 % (21.0-51.0); %Monocytes 13.4 % (0.0-10.0); %Neutrophils 73.4 % (42.0-75.0); Hemoglobin 6.6 g/dL (12.0-16.0); Mean Corpuscular HGB CONC 32.8 g/dL (32.0-36.0); Mean Corpuscular Hemoglobin 26.6 pg (27.0-31.0); Mean Corpuscular Volume 81.1 fL (78.0-98.0); Mean Platelet Volume 8.2 fL (7.4-10.4); Platelet Count 158 thou/uL (130-400); RBC Distribution Width 15.8 % (11.5-14.5); Red Blood Cell (RBC) Count 2.48 mill/uL (4.20-5.40); White Blood Cell (WBC) Count 7.4 thou/uL (4.8-10.8)
[2018-06-12 02:55] LABS: Anion Gap 17 mmol/L (10-20); BUN (Urea Nitrogen) 68 mg/dL (9.8-20.1); Calc. Creatinine Clearance 58 mL/min (70-130); Calcium 9.3 mg/dL (7.8-10.44); Carbon Dioxide 26 mmol/L (23-31); Chloride 86 mmol/L (98-107); Estimated GFR-MDRD 40; Glucose 112 mg/dL (83-110); Magnesium 2.3 mg/dL (1.6-2.6); Phosphorus 3.8 mg/dL (2.3-4.7); Potassium 3.8 mmol/L (3.5-5.1); Sodium 125 mmol/L (136-145)
[2018-06-12] MEDS: Levothyroxine 150 MCG TAB PO SCH (06:11)
[2018-06-12 07:19] LABS: INR-International Normal Ratio 1.6; Prothrombin Time 19.5 SEC (12.0-14.7)
[2018-06-12] MEDS ORDERED: Ferrous Sulfate 325 MG TAB PO SCH (08:00)
[2018-06-12 08:11] LABS: CKMB 1.9 ng/mL (0-6.6)
[2018-06-12] MEDS ORDERED: Sodium Chloride 0.9% 500 ML IV SCH (08:15)
[2018-06-12] MEDS: Mometasone/Formoterol 120 PUFF INHALER INH SCH ×2 (08:24→19:34)
[2018-06-12] MEDS: Pregabalin 75 MG CAP PO SCH ×2 (09:14→22:17)
[2018-06-12] MEDS: Citalopram 20 MG TAB PO SCH (09:14)
[2018-06-12] MEDS: Docusate 100 MG CAP PO SCH ×2 (09:14→22:17)
[2018-06-12] MEDS: Sulfameth/Trimethoprim DS 800-160mg TAB PO SCH ×2 (09:15→22:17)
[2018-06-12] MEDS: Polyethylene Glycol 3350 17 GM Packet PO SCH (09:17)
[2018-06-12] MEDS ORDERED: Lidocaine 1% (PF) 30 ML VIAL ONE (10:06)
--- NOTE | 2018-06-12 10:21 | PRG ---
DATE OF SERVICE: 06/12/2018 SUBJECTIVE: Ms. Grayson is an 87-year-old woman who is status post ground level fall where she susta ined left femur fracture. This morning, she reports adequate pain control when at rest. She has been relatively hypotensive overnight. Urinary output; however, is adequate. OBJECTIVE: VITAL SIGNS: Currently includes blood pressure 88/38, pulse is 109, respiratory rate is 14, temperat ure is 98.4 degrees Fahrenheit, oxygen saturation is 100% on 3 liters by nasal cannula oxygen. HEENT: Reveals normocephalic and atraumatic. HEART: Reveals irregular rate and rhythm. LUNGS: Clear to auscultation bilaterally. Her breathing is regular and unlabored. ABDOMEN: Soft and obese, but nontender to palpation. Liver and spleen nonpalpable below costal libby in. EXTREMITIES: Reveal 2+ radial and pedal pulses bilaterally. No ankle edema is present. NEUROLOGIC: Reveals no focal deficits present. LABORATORY FINDINGS: Today includes CBC with 7400 white blood cells, hemoglobin and hematocrit are 6 .6 and 20.1 respectively. Platelet count is 158,000. Metabolic profile: Sodium 125, potassium 3.8, chloride is 86, bicarbonate is 26, BUN 68, creatinine is 1.26, glucose 112, magnesium is 2.3, phosph orus is 3.8. IMPRESSION: 1. Post-admission day #1, status post ground level fall. 2. Left femur fracture. 3. Acute blood loss anemia. 4. Acute on chronic renal insufficiency. PLAN: Transfuse with packed red blood cells and continue a gentle fluid resuscitation using urinary output as endpoint of resuscitation. The patient has a qualitative platelet dysfunction, therefore, surgery has been withheld today. The above findings and plan has been discussed with the patient who indicates understanding of the in formation given. I have answered her questions.
[2018-06-12] MEDS ORDERED: Hydrocortisone Sod Succ/PF 100 mg/2 ml Vial IVP SCH (11:00)
--- NOTE | 2018-06-12 11:20 | OP ---
DATE OF PROCEDURE: 06/12/2018 PREOPERATIVE DIAGNOSES: 1. Status post fall. 2. Left femur fracture. 3. Acute blood loss anemia. 4. Acute hemorrhagic shock. POSTOPERATIVE DIAGNOSES: 1. Status post fall. 2. Left femur fracture. 3. Acute blood loss anemia. 4. Acute hemorrhagic shock. PROCEDURES PERFORMED: Placement of right subclavian central venous catheter. INDICATIONS FOR PROCEDURE: An 87-year-old woman fell from ground level position who sustained a femu r fracture. She has a qualitative platelet dysfunction and is pending ORIF of the femur fracture. S he has required multiple units of packed red blood cells transfused overnight. She is hypertensive t his morning. Multiple attempts to secure dependable peripheral IV access has been unsuccessful. Zane cing a central venous catheter to facilitate therapeutics. DESCRIPTION OF PROCEDURE: Informed consent obtained from Ms. Grayson who was placed in supine positi on. Right chest wall is sterilely prepped and draped in a usual fashion. The skin below the right c lavicle anesthetized with 1% lidocaine plain. The right subclavian vein was cannulated with an 18 ga uge introducer needle returning dark venous blood. Guidewire was passed through this needle and adva nced into the right subclavian vein without resistance. The needle was withdrawn over the guidewire. A stab incision is made adjacent to the guidewire using an 11 scalpel. Dilator was passed over the guidewire dilating subcutaneous tissues. Dilator was removed and a triple-lumen central venous cath eter was advanced over the guidewire and placed in the right subclavian vein without resistance and s topping at the 15 cm tory. The guidewire is removed. Dark venous blood was aspirated from all 3 por ts, which were then individually flushed with saline. Catheter secured to the anterior chest wall us ing 3-0 silk suture at 2 points. Sterile dressings were applied. The patient tolerated the procedur e without any apparent complication and remains hemodynamically stable following completion of the pr ocedure. Portable chest x-ray is ordered for placement and will be reviewed to exclude any pneumotho rax.
--- NOTE | 2018-06-12 11:47 | RAD ---
SINGLE VIEW CHEST: Date: 06/12/18 COMPARISON: 06/11/18. HISTORY: Central line placement. FINDINGS: Single view of the chest shows an enlarged but stable cardiomediastinal silhouette with atherosclerot ic calcifications in the aorta. The pacemaker is unchanged in position. There is a right subclavian c entral venous catheter with its tip in the superior vena cava. No pneumothorax is seen. IMPRESSION: 1. Status post central line placement without evidence of complication. 2. Cardiomegaly. POS: [facility]
[2018-06-12 12:52] LABS: Hemoglobin 8.1 g/dL (12.0-16.0)
--- NOTE | 2018-06-12 15:44 | CON ---
DATE OF CONSULTATION: 06/12/2018 REASON FOR CONSULTATION: Hypotension. PRIMARY BAT CARRIER: Margi Srinivasan M.D. HISTORY OF PRESENT ILLNESS: Kenan is an 87-year-old woman with a history of atrial fibrillation in addition to sick sinus syndrome, status post pacemaker recently fell and fractured her leg. She was found to be profoundly anemic with a hemoglobin of 5. I was consulted due to a persistent heart rat e of 60 with hypotension in the 70s. After receiving blood, fluids and albumin, her blood pressure i s markedly improved and is now in the 117 systolic. She currently has no symptoms. PAST MEDICAL HISTORY: As above including hypertension, hypothyroidism, DVT, acid reflux. PAST SURGICAL HISTORY: Spine surgery, hysterectomy, appendectomy, cholecystectomy, mastectomy, catar act surgery, laminectomy. SOCIAL HISTORY: No current tobacco or alcohol use. ALLERGIES: CODEINE and PHOSPHATE. REVIEW OF SYSTEMS: Ten-point review of systems as above, otherwise negative. PHYSICAL EXAMINATION: GENERAL: Patient is a pleasant female who is in no acute distress. The patient appears her stated a ge. VITAL SIGNS: Blood pressure 117/58, pulse 60, respirations 20. NEUROLOGIC: The patient is alert and oriented times 3 with no focal neurologic deficits. HEENT: Sclerae without icterus. Mouth has moist mucous membranes with normal pallor. NECK: No JVD. Carotid upstroke brisk. No bruits bilaterally. LUNGS: Clear to auscultation with unlabored respirations. BACK: No scoliosis or kyphosis. CARDIAC: Regular rate and rhythm with normal S1 and S2. No S3 or S4 noted. No significant rubs, mu rmurs, thrills, or gallops noted throughout the precordium. PMI is not displaced. There is no lyndsay ternal heave. ABDOMEN: Soft, nontender, nondistended. No peritoneal signs present. No hepatosplenomegaly. No ab normal striae. EXTREMITIES: 2+ femoral and 2+ dorsalis pedis pulses. No cyanosis, clubbing, or edema. SKIN: No gross abnormalities. PERTINENT LABORATORY DATA: Hemoglobin up to 8.1 from 5.6, creatinine 1.26. IMPRESSION: 1. Hypotension. 2. Anemia. 3. Recent femur fracture. RECOMMENDATIONS: 1. We will interrogate pacemaker. 2. Continue to keep hemoglobin above 8. Blood pressure is markedly improved. She has no current sy mptoms. Her blood pressure improved with fluids, blood and albumin. 3. Interrogate pacemaker. 4. Review echo.
[2018-06-12] MEDS: Hydrocortisone Sod Succ/PF 100 mg/2 ml Vial IVP SCH ×2 (17:27→23:58)
[2018-06-12] MEDS: Ferrous Sulfate 325 MG TAB PO SCH (22:16)
[2018-06-12] MEDS: Ascorbic Acid 500 mg Chewable Tablet PO SCH (22:17)
[2018-06-12] MEDS: Simvastatin 5 MG TAB PO SCH (22:18)
[2018-06-13] MEDS: HYDROcodone/Acetaminophen 5/325 mg Tablet PO SCH ×4 (03:17→20:42)
[2018-06-13 04:29] LABS: #Lymphocytes 0.3 thou/uL (1.20-3.40); #Monocytes 0.8 thou/uL (0.11-0.59); #Neutrophils 6.3 thou/uL (1.40-6.50); %Lymphocytes 4.4 % (21.0-51.0); %Monocytes 11.1 % (0.0-10.0); %Neutrophils 84.5 % (42.0-75.0); Hemoglobin 7.3 g/dL (12.0-16.0); Mean Corpuscular HGB CONC 32.8 g/dL (32.0-36.0); Mean Corpuscular Hemoglobin 27.7 pg (27.0-31.0); Mean Corpuscular Volume 84.5 fL (78.0-98.0); Mean Platelet Volume 7.9 fL (7.4-10.4); Platelet Count 130 thou/uL (130-400); RBC Distribution Width 16.1 % (11.5-14.5); Red Blood Cell (RBC) Count 2.65 mill/uL (4.20-5.40); White Blood Cell (WBC) Count 7.4 thou/uL (4.8-10.8)
[2018-06-13 04:42] LABS: Anion Gap 13 mmol/L (10-20); BUN (Urea Nitrogen) 57 mg/dL (9.8-20.1); Calc. Creatinine Clearance 56 mL/min (70-130); Calcium 9.7 mg/dL (7.8-10.44); Carbon Dioxide 30 mmol/L (23-31); Chloride 90 mmol/L (98-107); Estimated GFR-MDRD 39; Glucose 130 mg/dL (83-110); Magnesium 2.1 mg/dL (1.6-2.6); Phosphorus 3.8 mg/dL (2.3-4.7); Potassium 3.7 mmol/L (3.5-5.1); Sodium 129 mmol/L (136-145)
[2018-06-13] MEDS: Sodium Chloride 0.9% 1,000 ML IV SCH ×2 (06:39→17:59)
[2018-06-13] MEDS: Hydrocortisone Sod Succ/PF 100 mg/2 ml Vial IVP SCH ×3 (06:39→18:03)
[2018-06-13] MEDS: Levothyroxine 150 MCG TAB PO SCH (07:05)
[2018-06-13] MEDS: Mometasone/Formoterol 120 PUFF INHALER INH SCH ×2 (07:42→19:00)
[2018-06-13] MEDS: Sulfameth/Trimethoprim DS 800-160mg TAB PO SCH ×2 (08:49→20:43)
[2018-06-13] MEDS: Pregabalin 75 MG CAP PO SCH ×2 (08:49→20:43)
[2018-06-13] MEDS: Docusate 100 MG CAP PO SCH ×2 (08:50→20:43)
[2018-06-13] MEDS: Citalopram 20 MG TAB PO SCH (08:50)
[2018-06-13] MEDS: Ferrous Sulfate 325 MG TAB PO SCH ×2 (08:50→20:43)
[2018-06-13] MEDS: Polyethylene Glycol 3350 17 GM Packet PO SCH (08:51)
[2018-06-13] MEDS: Ascorbic Acid 500 mg Chewable Tablet PO SCH ×2 (08:51→20:43)
[2018-06-13] MEDS: DOPamine 400 MG/D5W 250 ML 250 ML IVPB SCH ×2 (09:30→20:44)
--- NOTE | 2018-06-13 10:58 | PRG ---
DATE OF SERVICE: 06/13/2018 SUBJECTIVE: Ms. Grayson is an 87-year-old woman status post ground level fall where she sustained a left femur fracture. Overnight blood pressure has been labile and was hypotensive this morning. The patient did receive packed red blood cells yesterday. Her urinary output; however, has been adequat e. This morning, she reports 8/10 left leg pain. OBJECTIVE: VITAL SIGNS: This morning includes blood pressure 94/40, pulse remains at 60. This patient is 100%, pacemaker dependent. Respiratory rate is 14, temperature is 98.2 degrees Fahrenheit, oxygen saturat ion is 100% on 2 liters by nasal cannula oxygen. HEENT: Reveals pupils equal, round, and reactive to light and accommodation. NECK: The patient has no jugular venous distention noted. HEART: Reveals a regular rate and rhythm. LUNGS: Clear to auscultation bilaterally. Breathing is regular and unlabored. ABDOMEN: Soft, nontender, nondistended. EXTREMITIES: Reveals 2+ radial and pedal pulses bilaterally. No ankle edema is present. NEUROLOGIC: Reveals no focal deficits present. LABORATORY DATA: CBC with 7400 white blood cells, hemoglobin and hematocrit 7.3 and 22.4 respectivel y. Platelet count is 130,000. Metabolic profile: Sodium 129, potassium 3.7, chloride is 90, bicarb tiffany 30, BUN is 57, creatinine is 1.30, glucose is 130, magnesium 2.1, phosphorus is 3.8. IMPRESSION: 1. Post-injury day #2, status post ground level fall. 2. Left femur fracture. 3. Acute blood loss anemia. 4. Stable acute on chronic kidney disease. 5. Acute hypokalemia. PLAN: 1. Patient will be transfused with packed red blood cells. 2. We will initiate low dose dopamine to provide inotropic support and monitor the patient's urinary output as end point of resuscitation. 3. The patient is certainly stable to proceed with ORIF of the left femur fracture per Orthopedic Leong rgery. I suspect postoperatively the patient may recover in the Intensive Care Unit. The above findings and plan discussed with the patient who indicates understanding of information giv en. We will also correct abnormal electrolytes.
[2018-06-13] MEDS ORDERED: Lidocaine 1% (PF) 30 ML VIAL ONE (11:56)
[2018-06-13] MEDS ORDERED: PHENYLEPHRINE-NS 100 MCG/ML 10 ML SYRINGE ONE (12:42)
[2018-06-13] MEDS ORDERED: Succinylcholine Chloride 20 MG/ML 10 ml SYRINGE FS ONE (12:42)
[2018-06-13] MEDS ORDERED: Fentanyl 100 MCG/2 ML VIAL ONE (15:46)
--- NOTE | 2018-06-13 15:46 | RAD ---
TWO VIEWS LEFT FEMUR: COMPARISON: 06/11/18. HISTORY: Femur fracture status post ORIF. FINDINGS/IMPRESSION: Multiple limited intraoperative fluoroscopic views of the left femur were submitted for interpretatio n. The patient is status post retrograde intramedullary keagan fixation of a fracture of the mid portio n of the right femur. No perihardware lucency is seen. Better alignment of the fracture is seen. POS: [facility]
[2018-06-13] MEDS ORDERED: Promethazine HCl 25 MG/ML VIAL IM PRN (15:52)
[2018-06-13] MEDS ORDERED: Ondansetron HCl/PF 4 MG/2 ML Vial IVP PRN (15:52)
[2018-06-13] MEDS ORDERED: Promethazine HCl 25 MG/ML VIAL SLOW IVP PRN (15:52)
[2018-06-13 16:13] LABS: Base Excess (BEa) -0.3 mEq/L (-2.0 to +3.0); CO2 Tension 50.1 mmHg (35.0-45.0); Hemoglobin (Hb) 10.5 g/dL (12.0-16.0); O2 Tension (PaO2) 67.1 mmHg (> 60.0); pH, Arterial 7.33 (7.35-7.45)
[2018-06-13 16:14] LABS: ALV-art Gradient 98.435 (0-20); Calcium, Ionized 1.2 mmol/L (1.12-1.30); Puncture Site ART LINE
[2018-06-13] MEDS: CEFAZOLIN/Water 2 GM/20 ML SYRINGE SLOW IVP SCH ×2 (17:59→20:44)
--- NOTE | 2018-06-13 20:11 | OP ---
DATE OF PROCEDURE: 06/13/2018 OPERATION: Intramedullary nail of left femur. PREOPERATIVE DIAGNOSIS: Left distal femur fracture. POSTOPERATIVE DIAGNOSIS: Left distal femur fracture. COMPLICATIONS: None. ESTIMATED BLOOD LOSS: 500 mL SURGEON: Lamin Tang M.D. LOADER HELPER: Easton Taylor PA-C. ANESTHESIA: General. IMPLANTS: Synthes retrograde femoral nail size 13 x 380 mm with helical blade. INDICATIONS: Ms. Grayson is an 87-year-old female who fell. She fractured her left femur. She had a widely displaced distal femur fracture. She was indicated for intramedullary nail fixation to rest ore anatomic alignment and promote healing. Risks have been reviewed in detail. She is at elevated risk given her multiple medical comorbidities. DESCRIPTION OF PROCEDURE: Ms. Grayson was identified in the preoperative holding area. Her correct extremity was marked. She was carried to the operating room. She was positioned supine. General an esthesia was induced. A multidisciplinary timeout was performed. The left lower extremity was prepp ed and draped in sterile fashion. We began the procedure with an incision over the knee. We dissected down through the subcutaneous ti ssues to the patellar tendon, which was incised. This brought us down into the knee joint. Copious hematoma was evacuated. At this point, we inserted a guidewire for an appropriate start point on our retrograde nail. We overdrilled the guidewire. Next, we placed a ball-tip guidewire past the fract ure site. At this point, we evaluated with intraoperative x-ray. We measured an appropriate length for our nail. We then reduced the fracture. We were unable to adequately reduce the fracture in brown sed fashion so we made a lateral incision. We dissected down through the subcutaneous tissues to the fascia which was opened. We then exposed the femur fracture. We pulled traction and rotated the fe mur back into anatomic position. We then placed two bone forceps across the fracture. At this point , we overreamed our guidewire to a size 14 reamer. We then inserted a 13-mm nail in appropriate posi tion checking x-rays. We placed a distal screw and blade locking the blade in place with an end cap. Next, we placed a proximal cross lock screw. At this point, the femur was imaged. We saved these images. We then thoroughly irrigated with copious lavage. We closed with #2 0 Vicryl suture, 2-0 Vi cryl suture and lore for the skin. A sterile dressing was applied. The patient was taken to the recovery room in good condition without complication.
[2018-06-13] MEDS: Simvastatin 5 MG TAB PO SCH (20:44)
[2018-06-14] MEDS: HYDROcodone/Acetaminophen 5/325 mg Tablet PO SCH ×3 (01:23→13:57)
[2018-06-14] MEDS: Hydrocortisone Sod Succ/PF 100 mg/2 ml Vial IVP SCH ×4 (01:24→18:00)
[2018-06-14] MEDS: Sodium Chloride 0.9% 1,000 ML IV SCH (01:24)
[2018-06-14 04:53] LABS: Hemoglobin 9.9 g/dL (12.0-16.0); Mean Corpuscular HGB CONC 33.4 g/dL (32.0-36.0); Mean Corpuscular Hemoglobin 28.7 pg (27.0-31.0); Mean Corpuscular Volume 86.1 fL (78.0-98.0); Mean Platelet Volume 7.3 fL (7.4-10.4); Platelet Count 181 thou/uL (130-400); RBC Distribution Width 15.3 % (11.5-14.5); Red Blood Cell (RBC) Count 3.44 mill/uL (4.20-5.40); White Blood Cell (WBC) Count 14.8 thou/uL (4.8-10.8)
[2018-06-14 05:16] LABS: Anion Gap 13 mmol/L (10-20); BUN (Urea Nitrogen) 43 mg/dL (9.8-20.1); Calc. Creatinine Clearance 58 mL/min (70-130); Calcium 9.6 mg/dL (7.8-10.44); Carbon Dioxide 27 mmol/L (23-31); Chloride 96 mmol/L (98-107); Estimated GFR-MDRD 40; Glucose 156 mg/dL (83-110); Potassium 3.5 mmol/L (3.5-5.1); Sodium 132 mmol/L (136-145)
[2018-06-14] MEDS: Levothyroxine 150 MCG TAB PO SCH (05:21)
[2018-06-14] MEDS: DOPamine 400 MG/D5W 250 ML 250 ML IVPB SCH ×3 (05:22→16:21)
[2018-06-14] MEDS: Mometasone/Formoterol 120 PUFF INHALER INH SCH ×2 (07:45→19:00)
[2018-06-14 08:43] LABS: Magnesium 2.1 mg/dL (1.6-2.6); Phosphorus 2.8 mg/dL (2.3-4.7)
[2018-06-14] MEDS: Pregabalin 75 MG CAP PO SCH ×2 (09:22→21:25)
[2018-06-14] MEDS: Sulfameth/Trimethoprim DS 800-160mg TAB PO SCH ×2 (09:22→21:26)
[2018-06-14] MEDS: Citalopram 20 MG TAB PO SCH (09:24)
[2018-06-14] MEDS: Ferrous Sulfate 325 MG TAB PO SCH ×2 (09:24→21:26)
[2018-06-14] MEDS: Ascorbic Acid 500 mg Chewable Tablet PO SCH ×2 (09:26→21:26)
[2018-06-14] MEDS: Docusate 100 MG CAP PO SCH ×2 (09:26→21:26)
[2018-06-14] MEDS: Polyethylene Glycol 3350 17 GM Packet PO SCH (09:36)
[2018-06-14] MEDS: Potassium Chloride 20 MEQ in Premix Bag 1 BAG IVPB SCH ×2 (09:39→11:22)
--- NOTE | 2018-06-14 13:13 | PRG ---
DATE OF SERVICE: 06/14/2018 SUBJECTIVE: Ms. Grayson is an 87-year-old woman who is postoperative day #1, status post ORIF of lef t femur fracture. The patient is currently on dopamine continuous infusion at 10 mcg per kilogram pe r minute. Urinary output is adequate. [place] Coma Scale is 15. The patient denies any dyspnea, sy ncope, chest or abdominal pain. OBJECTIVE: VITAL SIGNS: This morning includes blood pressure 112/66, pulse is 75, respiratory rate is 12, maxim um temperature in the last 24 hours is 98.7 degrees Fahrenheit, oxygen saturation is 98% on 2 liters by nasal cannula oxygen. HEENT: Reveals normocephalic and atraumatic. Pupils are equal, round, reactive to light and accommo dation. She has no sclerae icterus present. NECK: There is no jugular venous distention noted. CARDIOVASCULAR: Reveals regular rate and rhythm. No murmurs or gallops auscultated. LUNGS: Clear to auscultation bilaterally. Breathing is regular and unlabored. ABDOMEN: Soft, nontender, nondistended. EXTREMITIES: With 2+ radial and pedal pulses bilaterally. No ankle edema is present. NEUROLOGIC: Reveals no focal deficits present. PERTINENT LABORATORY FINDINGS: Today includes a CBC with 14,800 white blood cells, hemoglobin and he matocrit at 9.9 and 29.7 respectively. Platelet count is 181,000. Metabolic profile: Sodium 132, p otassium is 3.5, chloride is 96, bicarbonate is 27, BUN is 43, creatinine is 1.25, glucose is 156. M agnesium 2.1, phosphorus is 2.8. IMPRESSION: 1. Postoperative day #1 status post open reduction internal fixation left femur fracture. 2. Acute blood loss anemia, stable. 3. Stable acute on chronic renal insufficiency. 4. Acute hypokalemia. PLAN: 1. Correct abnormal electrolytes. 2. Initiate physical and occupational therapy. 3. The patient will be evaluated by PM&R for possible inpatient rehabilitation. 4. We will begin to wean the dopamine to off as long as adequate blood pressure and urinary output m aintained. Above findings and plan discussed with the patient who indicates understanding of informa tion given. I answered her questions.
--- NOTE | 2018-06-14 14:59 | PDOC.CTH ---
<Abigail Olmos - Last Filed: 06/14/18 14:57> Cardiology Progress Note - Subjective The pt seen and examined. NO overnight events. NO cardiac complaints. She is comfortable with Lyrica and other pain medication. - Objective Vital Signs Temp Pulse Pulse Pulse Resp BP BP 06/14/18 12:00 98.8 F 06/14/18 11:20 76 83 106/51 L 100/51 L 06/14/18 08:35 78 85 92/40 L 102/56 L 06/14/18 08:00 98.7 F 77 12 06/14/18 07:45 75 13 06/14/18 07:36 06/14/18 07:35 76 16 Pulse Ox Pulse Ox Pulse Ox 06/14/18 12:00 06/14/18 11:20 06/14/18 08:35 97 98 06/14/18 08:00 99 06/14/18 07:45 06/14/18 07:36 99 06/14/18 07:35 Admit Weight 266 lb Weight 269 lb 10.005 oz 06/13/18 06/14/18 06/15/18 06:59 06:59 06:59 Intake Total 3913.25 2660 Output Total 1300 1425 920 Balance 2613.25 1235 -920 - Physical Examination General/Neuro: alert & oriented x3 Neck: no JVD present Lungs: CTA (diminished at bases) Heart: RRR Abdomen: soft (edema in BLE ) Extremities: other: - Telemetry Telemetry Rhythm: SR - Labs Result Diagrams: 06/14/18 04:30 06/14/18 04:30 Troponin/CKMB CK-MB (CK-2) 1.9 ng/mL (0-6.6) 06/12/18 07:00 Troponin I 0.080 ng/mL (< 0.028) H 06/12/18 07:00 - Assessment/Plan 1. Hypotension - stable with dopamine 10mcg/kg/min. 2. S/p ORIF of LT distal fem. fx on 06/13/18 - stable; managed by orth. 3. Afib - remains in SR. Not on OAC due to hx of fall; cont. to monitor 4. PPM placement 2/2 SSS - 5. Anemia - stable 6. Acute on CKD improving MAR reviewed Review of Systems - Review of Systems Constitutional: reports: no symptoms reported EENTM: reports: no symptoms reported Respiratory: reports: no symptoms reported Gastrointestinal/Abdominal: reports: no symptoms reported Genitourinary: reports: no symptoms reported Musculoskeletal: reports: no symptoms reported <Marva Srinivasan - Last Filed: 06/14/18 18:27> Cardiology Progress Note - Objective Vital Signs Temp Pulse Pulse Pulse Resp BP BP 06/14/18 17:00 98.4 F 06/14/18 12:00 98.8 F 06/14/18 11:20 76 83 106/51 L 100/51 L 06/14/18 08:35 78 85 92/40 L 102/56 L 06/14/18 08:00 98.7 F 77 12 06/14/18 07:45 75 13 06/14/18 07:36 06/14/18 07:35 76 16 Pulse Ox Pulse Ox Pulse Ox 06/14/18 17:00 06/14/18 12:00 06/14/18 11:20 06/14/18 08:35 97 98 06/14/18 08:00 99 06/14/18 07:45 06/14/18 07:36 99 06/14/18 07:35 Admit Weight 266 lb Weight 269 lb 10.005 oz 06/13/18 06/14/18 06/15/18 06:59 06:59 06:59 Intake Total 3913.25 2660 1083 Output Total 1300 1425 1170 Balance 2613.25 1235 -87 - Labs Result Diagrams: 06/14/18 04:30 06/14/18 04:30 Troponin/CKMB CK-MB (CK-2) 1.9 ng/mL (0-6.6) 06/12/18 07:00 Troponin I 0.080 ng/mL (< 0.028) H 06/12/18 07:00 - Assessment/Plan Pt. seen and eval. by me. I agree with the A/P by the ACTIVITY THERAPY SPECIALIST.Continue present management.
[2018-06-14] MEDS ORDERED: traMADol HCl 50 MG TAB PO PRN (16:56)
[2018-06-14] MEDS: Acetaminophen 500 MG TAB PO SCH (18:00)
[2018-06-14] MEDS: traMADol HCl 50 MG TAB PO SCH (18:01)
[2018-06-14] MEDS: Simvastatin 5 MG TAB PO SCH (21:26)
[2018-06-15] MEDS: traMADol HCl 50 MG TAB PO SCH ×4 (00:43→12:13)
[2018-06-15] MEDS: Acetaminophen 500 MG TAB PO SCH ×5 (00:43→18:44)
[2018-06-15] MEDS: Hydrocortisone Sod Succ/PF 100 mg/2 ml Vial IVP SCH ×4 (00:43→18:45)
[2018-06-15] MEDS: DOPamine 400 MG/D5W 250 ML 250 ML IVPB SCH ×3 (01:18→21:03)
[2018-06-15] MEDS: Levothyroxine 150 MCG TAB PO SCH (05:10)
[2018-06-15 05:16] LABS: #Lymphocytes 0.7 thou/uL (1.20-3.40); #Neutrophils 11.4 thou/uL (1.40-6.50); %Basophils 0.1 % (0.0-1.0); %Eosinophils 0.1 % (0.0-10.0); %Lymphocytes 5.3 % (21.0-51.0); %Monocytes 7.6 % (0.0-10.0); %Neutrophils 86.9 % (42.0-75.0); Hemoglobin 8.5 g/dL (12.0-16.0); Mean Corpuscular HGB CONC 33.1 g/dL (32.0-36.0); Mean Corpuscular Hemoglobin 28.9 pg (27.0-31.0); Mean Corpuscular Volume 87.4 fL (78.0-98.0); Mean Platelet Volume 7.4 fL (7.4-10.4); Platelet Count 178 thou/uL (130-400); RBC Distribution Width 15.9 % (11.5-14.5); Red Blood Cell (RBC) Count 2.95 mill/uL (4.20-5.40); White Blood Cell (WBC) Count 13.1 thou/uL (4.8-10.8)
[2018-06-15 05:40] LABS: Anion Gap 11 mmol/L (10-20); BUN (Urea Nitrogen) 41 mg/dL (9.8-20.1); Calc. Creatinine Clearance 65 mL/min (70-130); Calcium 9.9 mg/dL (7.8-10.44); Carbon Dioxide 28 mmol/L (23-31); Chloride 96 mmol/L (98-107); Estimated GFR-MDRD 45; Glucose 155 mg/dL (83-110); Magnesium 2.2 mg/dL (1.6-2.6); Phosphorus 2.9 mg/dL (2.3-4.7); Potassium 4.1 mmol/L (3.5-5.1); Sodium 131 mmol/L (136-145)
[2018-06-15] MEDS: Mometasone/Formoterol 120 PUFF INHALER INH SCH ×2 (06:41→19:39)
[2018-06-15] MEDS: Pregabalin 75 MG CAP PO SCH (08:25)
[2018-06-15] MEDS: Citalopram 20 MG TAB PO SCH (08:25)
[2018-06-15] MEDS: Docusate 100 MG CAP PO SCH ×2 (08:25→21:03)
[2018-06-15] MEDS: Ascorbic Acid 500 mg Chewable Tablet PO SCH ×2 (08:25→21:02)
[2018-06-15] MEDS: Ferrous Sulfate 325 MG TAB PO SCH ×2 (08:25→21:02)
[2018-06-15] MEDS: Polyethylene Glycol 3350 17 GM Packet PO SCH (08:25)
[2018-06-15] MEDS: Sulfameth/Trimethoprim DS 800-160mg TAB PO SCH ×2 (08:26→21:03)
[2018-06-15] MEDS: Enoxaparin Sodium 30 MG/0.3 ML SYRINGE SC SCH (08:26)
[2018-06-15] MEDS ORDERED: Furosemide 40 MG/4 ML VIAL SLOW IVP SCH ×2 (09:15→20:30)
--- NOTE | 2018-06-15 10:06 | PDOC.CTH ---
Cardiology Progress Note - Subjective Pt. seen and eval. by me. No new events overnight. comfortable this AM. No chest pain or SOB. Seems to be on the dry side and BP is on the low side. Still on dopamine. - Objective Vital Signs Temp Pulse Resp Pulse Ox 06/15/18 08:00 98.0 F 85 16 95 06/15/18 06:41 62 10 L 06/15/18 06:33 97 06/15/18 06:31 62 10 L 06/15/18 04:00 98.1 F 06/15/18 00:00 98.4 F Admit Weight 266 lb Weight 271 lb 2.697 oz 06/14/18 06/15/18 06/16/18 06:59 06:59 06:59 Intake Total 2660 1563 250 Output Total 1425 1865 154 Balance 1235 -302 96 - Physical Examination General/Neuro: alert & oriented x3 Neck: carotid US brisk Lungs: CTA Heart: other: (irreg./irreg. rate controlled.) Abdomen: no HSM Other PE findings: left leg in immobilizer, s/p femur fracture repair. - Labs Result Diagrams: 06/15/18 05:10 06/15/18 05:10 Troponin/CKMB CK-MB (CK-2) 1.9 ng/mL (0-6.6) 06/12/18 07:00 Troponin I 0.080 ng/mL (< 0.028) H 06/12/18 07:00 - Assessment/Plan 1. Hypotension - stable with dopamine 10mcg/kg/min. She seems to be somewhat volume depleted. I will hold Lasix and hopefully be able to taper the dopamine. 2. S/p ORIF of LT distal fem. fx on 06/13/18 - stable; managed by orth. 3. Afib - remains in SR. Not on OAC due to hx of fall; cont. to monitor 4. PPM placement 2/2 SSS - 5. Anemia - stable 6. Acute on CKD improving 7. Pulmonary hypertension. Stable. Review of Systems - Review of Systems Respiratory: reports: no symptoms reported Cardiac (ROS): reports: no symptoms reported ABD/GI: reports: no symptoms reported : reports: no symptoms reported Musculoskeletal: reports: other (some mild discomfort after surgery.) Neurological: reports: no symptoms reported
--- NOTE | 2018-06-15 13:28 | PRG ---
DATE OF SERVICE: 06/15/2018 SUBJECTIVE: Ms. Grayson is an 87-year-old woman who is postoperative day #3 status post ORIF of left femur fracture. The patient is on dopamine by continuous infusion. The deescalating dose of 6 mcg per kilogram per minute. Urinary output had fallen this morning. The patient is otherwise awake and alert. Reports adequate pain control. OBJECTIVE: VITAL SIGNS: This morning includes blood pressure 104/58, pulse is 73, respiratory rate is 16, maxim um temperature in the last 24 hours is 98 degrees Fahrenheit, oxygen saturation is 100% on 2 liters b y nasal cannula oxygen. HEART: Reveals regular rate and rhythm. No murmurs or gallops auscultated. CHEST: Clear to auscultation bilaterally. Breathing is regular and unlabored. ABDOMEN: Soft, nontender and nondistended. EXTREMITIES: Reveals 2+ radial and pedal pulses bilaterally. No ankle edema is present. NEUROLOGIC: Reveals no focal deficits present. PERTINENT LABORATORY FINDINGS: Today includes a CBC with 13,100 white blood cells, hemoglobin and he matocrit 8.5 and 25.8 respectively. Platelet count 178,000. Metabolic profile: Sodium 131, potassi um is 4.1, chloride is 96, bicarbonate is 28, BUN 41, creatinine is 1.14, glucose is 155. Magnesium is 2.2, phosphorus is 2.9. IMPRESSION: 1. Postoperative day #1 status post open reduction and internal fixation of left femur fracture. 2. Acute blood loss anemia, stable. 3. Resolving acute on chronic renal insufficiency. PLAN: 1. Continue to wean the dopamine to off as blood pressure tolerates. 2. The patient will be given a dose of Lasix this morning and we will monitor urinary output and ser ial serum creatinine as endpoint of diuresis. Above findings and plan discussed with the patient who indicates understanding of information given. I will continue physical and occupational therapy. T he patient has been evaluated by PM&R for possible inpatient rehabilitation.
[2018-06-15] MEDS ORDERED: Metolazone 2.5 MG TAB PO SCH (20:30)
[2018-06-15] MEDS ORDERED: Pregabalin 75 MG CAP PO SCH (21:00)
[2018-06-15] MEDS: Simvastatin 5 MG TAB PO SCH (21:02)
[2018-06-15] MEDS: Senokot S 8.6-50 MG TAB PO SCH (21:03)
[2018-06-16] MEDS: Hydrocortisone Sod Succ/PF 100 mg/2 ml Vial IVP SCH ×5 (00:43→23:07)
[2018-06-16] MEDS: Acetaminophen 500 MG TAB PO SCH ×5 (00:44→23:08)
[2018-06-16] MEDS: DOPamine 400 MG/D5W 250 ML 250 ML IVPB SCH ×4 (03:48→21:57)
[2018-06-16] MEDS: Levothyroxine 150 MCG TAB PO SCH (05:39)
[2018-06-16 05:55] LABS: Anion Gap 13 mmol/L (10-20); BUN (Urea Nitrogen) 50 mg/dL (9.8-20.1); Calc. Creatinine Clearance 52 mL/min (70-130); Calcium 10.3 mg/dL (7.8-10.44); Carbon Dioxide 29 mmol/L (23-31); Chloride 93 mmol/L (98-107); Estimated GFR-MDRD 34; Glucose 156 mg/dL (83-110); Magnesium 2.3 mg/dL (1.6-2.6); Phosphorus 3.4 mg/dL (2.3-4.7); Potassium 4.5 mmol/L (3.5-5.1); Sodium 130 mmol/L (136-145)
[2018-06-16 06:30] LABS: #Lymphocytes 0.6 thou/uL (1.20-3.40); #Monocytes 0.7 thou/uL (0.11-0.59); #Neutrophils 12.1 thou/uL (1.40-6.50); %Eosinophils 0.1 % (0.0-10.0); %Lymphocytes 4.4 % (21.0-51.0); %Monocytes 5.4 % (0.0-10.0); %Neutrophils 90.1 % (42.0-75.0); Anisocytosis SLIGHT = 6-15 cells (100X) (0-5/hpf); Hemoglobin 8.7 g/dL (12.0-16.0); MDiff Complete? YES; Mean Corpuscular HGB CONC 31.7 g/dL (32.0-36.0); Mean Corpuscular Hemoglobin 28.7 pg (27.0-31.0); Mean Corpuscular Volume 90.4 fL (78.0-98.0); Mean Platelet Volume 7.6 fL (7.4-10.4); PLT Morphology Comment Appears Adequate; Platelet Count 218 thou/uL (130-400); RBC Distribution Width 17.4 % (11.5-14.5); Red Blood Cell (RBC) Count 3.03 mill/uL (4.20-5.40); White Blood Cell (WBC) Count 13.5 thou/uL (4.8-10.8)
[2018-06-16] MEDS: Mometasone/Formoterol 120 PUFF INHALER INH SCH ×2 (07:11→18:38)
[2018-06-16] MEDS: Docusate 100 MG CAP PO SCH ×2 (08:30→19:52)
[2018-06-16] MEDS: Bisacodyl 10 MG SUPP PR SCH (08:30)
[2018-06-16] MEDS: Ascorbic Acid 500 mg Chewable Tablet PO SCH ×2 (08:30→19:51)
[2018-06-16] MEDS: Polyethylene Glycol 3350 17 GM Packet PO SCH (08:31)
[2018-06-16] MEDS: Sulfameth/Trimethoprim DS 800-160mg TAB PO SCH (08:31)
[2018-06-16] MEDS: Citalopram 20 MG TAB PO SCH (08:31)
[2018-06-16] MEDS: Senokot S 8.6-50 MG TAB PO SCH ×2 (08:31→19:51)
[2018-06-16] MEDS: Ferrous Sulfate 325 MG TAB PO SCH ×2 (08:31→19:51)
[2018-06-16] MEDS: Enoxaparin Sodium 30 MG/0.3 ML SYRINGE SC SCH (08:32)
--- NOTE | 2018-06-16 09:23 | PDOC.CTH ---
Cardiology Progress Note - Objective Vital Signs Temp Pulse Resp Pulse Ox 06/16/18 07:12 99 06/16/18 07:10 98.4 F 72 16 100 06/16/18 07:09 69 14 99 06/16/18 07:00 98.4 F 06/16/18 03:00 98.4 F 06/15/18 23:00 98.2 F Admit Weight 266 lb Weight 274 lb 7.608 oz 06/15/18 06/16/18 06/17/18 06:59 06:59 06:59 Intake Total 1563 2691 360 Output Total 1865 1052 330 Balance -302 1639 30 - Physical Examination General/Neuro: alert & oriented x3 Neck: no JVD present Lungs: CTA Heart: other: (irreg/irreg.) Abdomen: soft - Telemetry Telemetry Rhythm: a-fib. rate controlled. - Labs Result Diagrams: 06/16/18 05:26 06/16/18 05:26 Troponin/CKMB CK-MB (CK-2) 1.9 ng/mL (0-6.6) 06/12/18 07:00 Troponin I 0.080 ng/mL (< 0.028) H 06/12/18 07:00 - Assessment/Plan 1. Hypotension - stable with dopamine 10mcg/kg/min. She seems to be somewhat volume depleted. I will hold Lasix and hopefully be able to taper the dopamine. 2. S/p ORIF of LT distal fem. fx on 06/13/18 - stable; managed by orth. 3. Afib - remains in SR. Not on OAC due to hx of fall; cont. to monitor 4. PPM placement 2/2 SSS - 5. Anemia - stable 6. Acute on CKD improving 7. Pulmonary hypertension. Stable. Meds reviewed. Continue same.
--- NOTE | 2018-06-16 17:03 | PRG ---
DATE OF SERVICE: 06/16/2018 SUBJECTIVE: Ms. Grayson is an 87-year-old woman who is postoperative day #3 status post ORIF of left femur fracture. The patient remains in intensive care unit on dopamine at 10 mcg per kilogram per m inute. Blood pressure is better today. Urinary output is improving. However, difficult to wean the patient off the dopamine as urinary output dwindles whenever the systolic blood pressures below 100. OBJECTIVE: VITAL SIGNS: This morning includes blood pressure of 104/58, pulse 71, respiratory rate is 11, tempe rature is 98.4 degrees Fahrenheit, oxygen saturation is 99% on 2 liters by nasal cannula oxygen. The patient reports adequate pain control. HEENT: Reveals normocephalic and atraumatic. Pupils are equal, round, and reactive to light and acc ommodation. HEART: Reveals regular rate and rhythm. No murmurs or gallops auscultated. LUNGS: Clear to auscultation bilaterally. Her breathing is regular and unlabored. ABDOMEN: Soft, nontender, nondistended. Bowel sounds in all four quadrants appear normoactive. EXTREMITIES: With 2+ radial and pedal pulses bilaterally. No ankle edema is present. NEUROLOGIC: Reveals no focal deficits present. LABORATORY DATA: Today includes CBC with 13,500 white blood cells, hemoglobin and hematocrit 8.7 and 27.4 respectively. Platelet count is 218,000. Metabolic profile: Sodium 130, potassium is 4.5, ch loride is 93, bicarbonate is 29, BUN 50, creatinine is now elevated at 1.45. Glucose is 156. Magnesium 2.3 and phosphorus 3.4. IMPRESSION: 1. Postoperative day #3, status post open reduction internal fixation left femur fracture. 2. Acute blood loss anemia, stable. 3. Acute kidney injury. 4. Acute hyponatremia. PLAN: 1. The patient will be transfused with 1 unit of packed red blood cell. 2. We will continue with dopamine at current rate; however, we will begin to wean the dopamine to of f as blood pressure and renal function tolerates. 3. We will continue with physical and occupational therapy. Above findings and plan discussed with the patient who indicates understanding of the information matheus en. I have answered all her questions.
[2018-06-16] MEDS: Simvastatin 5 MG TAB PO SCH (19:51)
[2018-06-17] MEDS: Acetaminophen 500 MG TAB PO SCH ×4 (05:06→23:02)
[2018-06-17] MEDS: Hydrocortisone Sod Succ/PF 100 mg/2 ml Vial IVP SCH ×4 (05:06→23:02)
[2018-06-17] MEDS: Levothyroxine 150 MCG TAB PO SCH (05:07)
[2018-06-17] MEDS: DOPamine 400 MG/D5W 250 ML 250 ML IVPB SCH ×2 (05:53→16:21)
[2018-06-17] MEDS: Mometasone/Formoterol 120 PUFF INHALER INH SCH ×2 (06:38→18:59)
[2018-06-17 08:08] LABS: #Lymphocytes 0.8 thou/uL (1.20-3.40); #Monocytes 0.7 thou/uL (0.11-0.59); %Basophils 0.1 % (0.0-1.0); %Eosinophils 0.1 % (0.0-10.0); %Lymphocytes 7.3 % (21.0-51.0); %Monocytes 6.3 % (0.0-10.0); %Neutrophils 86.2 % (42.0-75.0); Hemoglobin 9.4 g/dL (12.0-16.0); Mean Corpuscular HGB CONC 33.3 g/dL (32.0-36.0); Mean Corpuscular Hemoglobin 29.6 pg (27.0-31.0); Mean Corpuscular Volume 88.8 fL (78.0-98.0); Mean Platelet Volume 7.6 fL (7.4-10.4); Platelet Count 205 thou/uL (130-400); RBC Distribution Width 17.8 % (11.5-14.5); Red Blood Cell (RBC) Count 3.19 mill/uL (4.20-5.40); White Blood Cell (WBC) Count 11.6 thou/uL (4.8-10.8)
[2018-06-17] MEDS: Citalopram 20 MG TAB PO SCH (09:20)
[2018-06-17] MEDS: Bisacodyl 10 MG SUPP PR SCH (09:20)
[2018-06-17] MEDS: Docusate 100 MG CAP PO SCH ×2 (09:20→20:10)
[2018-06-17] MEDS: Ferrous Sulfate 325 MG TAB PO SCH ×2 (09:20→20:10)
[2018-06-17] MEDS: Senokot S 8.6-50 MG TAB PO SCH ×2 (09:20→20:10)
[2018-06-17] MEDS: Enoxaparin Sodium 30 MG/0.3 ML SYRINGE SC SCH (09:21)
[2018-06-17] MEDS: Polyethylene Glycol 3350 17 GM Packet PO SCH (09:21)
[2018-06-17] MEDS: Ascorbic Acid 500 mg Chewable Tablet PO SCH ×2 (09:21→20:10)
[2018-06-17 09:44] LABS: Anion Gap 14 mmol/L (10-20); BUN (Urea Nitrogen) 44 mg/dL (9.8-20.1); Calc. Creatinine Clearance 60 mL/min (70-130); Calcium 10.6 mg/dL (7.8-10.44); Carbon Dioxide 27 mmol/L (23-31); Chloride 93 mmol/L (98-107); Estimated GFR-MDRD 40; Glucose 149 mg/dL (83-110); Magnesium 2.3 mg/dL (1.6-2.6); Phosphorus 2.7 mg/dL (2.3-4.7); Potassium 5.1 mmol/L (3.5-5.1); Sodium 129 mmol/L (136-145)
[2018-06-17] MEDS: Sodium Chloride 0.9% 1,000 ML IV SCH (11:07)
--- NOTE | 2018-06-17 11:12 | PRG ---
DATE OF SERVICE: 06/17/2018 SUBJECTIVE: Ms. Grayson is awake and alert, no complaints. PHYSICAL EXAMINATION: VITAL SIGNS: Her blood pressure is 100/60, the pulse is sinus rhythm in the 70s. LUNGS: Clear. CARDIAC: Normal S1, normal S2. ABDOMEN: Soft, nontender. EXTREMITIES: No edema. LABORATORY DATA: The patient's laboratories pertinent for sodium being low at 129. ASSESSMENT: 1. Paroxysmal atrial fibrillation. 2. Hyponatremia, still may be somewhat volume depleted. PLAN: 1. Give her saline at a very low rate of 50 mL per hour. 2. We will need to fluid restrict. 3. Hopefully can wean off the dopamine.
--- NOTE | 2018-06-17 14:33 | RAD ---
THREE VIEWS OF THE RIGHT SHOULDER: INDICATION: Fall with right shoulder pain. COMPARISON: None. FINDINGS: There is diffuse osteopenia. There is mild degenerative arthrosis right AC joint. No acute fracture or subluxation is evident. There is some narrowing of the acromiohumeral interval which can be seen with rotator cuff insufficiency. There is a right subclavian central venous catheter. IMPRESSION: 1. No acute osseous abnormality. 2. Narrowing of the acromiohumeral interval can be seen with rotator cuff insufficiency. 3. Mild acromioclavicular joint osteoarthrosis. POS: GARCÍA
--- NOTE | 2018-06-17 18:37 | PRG ---
DATE OF SERVICE: 06/17/2018 SUBJECTIVE: The patient is currently remaining on the critical care unit. She is postop day #4 stat us post an open reduction and internal fixation of her left femur fracture. She remains on dopamine that is being slowly weaned off. Her pressure has been maintained on 7.5 mcg per kilo per minute of dopamine. Urinary output is maintained at greater than 60 mL per hour. Her pain is controlled and s he has been tolerating a diet. PHYSICAL EXAMINATION: VITAL SIGNS: Temperature is 98.4, heart rate 72, blood pressure 103/58, respirations 18, oxygen satu rations 97% on 2 liters via nasal cannula. HEENT: Unremarkable. LUNGS: Clear to auscultation with good inspiratory and expiratory effort. HEART: Regular rate and rhythm. ABDOMEN: Soft, flat, nontender with active bowel sounds. EXTREMITIES: Neurovascularly intact x4. LABORATORY DATA AND IMAGING DATA: White blood cell count 11.6, hemoglobin 9.4, hematocrit 28.3, plat elets 205. Sodium 129, potassium 5.1, chloride 93, CO2 27, BUN 44, creatinine 1.25, glucose 149, mag nesium 2.3, phosphorus 2.7. No radiographs to review this morning. ASSESSMENT AND PLAN: 1. Status post fall. 2. Status post open reduction and internal fixation of left femur fracture. 3. Acute blood loss anemia, resolved. 4. Acute kidney injury. 5. Acute hyponatremia. PLAN: Will be to continue supportive care. Wean dopamine, free water restriction. Repeat labs in t he morning. The patient also complained of right shoulder pain this morning. We will get radiographs to check th is. There were no signs of bruising or any external markers of trauma. The patient did "she has art hritis in that shoulder and feels that this may just be a flare from the fall." The evaluation, examination, laboratory and radiographic findings were discussed with Dr. Corral.
[2018-06-17] MEDS: Simvastatin 5 MG TAB PO SCH (20:10)
[2018-06-17] MEDS: Sodium Chloride 1 GM TAB PO SCH (20:10)
[2018-06-18] MEDS: DOPamine 400 MG/D5W 250 ML 250 ML IVPB SCH ×3 (00:23→19:41)
[2018-06-18 04:43] LABS: #Basophils 0.1 thou/uL (0.0-0.2); #Lymphocytes 0.5 thou/uL (1.20-3.40); #Monocytes 0.6 thou/uL (0.11-0.59); #Neutrophils 9.3 thou/uL (1.40-6.50); %Eosinophils 0.1 % (0.0-10.0); %Lymphocytes 4.7 % (21.0-51.0); %Monocytes 5.4 % (0.0-10.0); %Neutrophils 88.8 % (42.0-75.0); Hemoglobin 9.4 g/dL (12.0-16.0); Mean Corpuscular HGB CONC 32.8 g/dL (32.0-36.0); Mean Corpuscular Hemoglobin 29.7 pg (27.0-31.0); Mean Corpuscular Volume 90.4 fL (78.0-98.0); Mean Platelet Volume 7.4 fL (7.4-10.4); Platelet Count 188 thou/uL (130-400); RBC Distribution Width 18.5 % (11.5-14.5); Red Blood Cell (RBC) Count 3.15 mill/uL (4.20-5.40); White Blood Cell (WBC) Count 10.5 thou/uL (4.8-10.8)
[2018-06-18] MEDS: Sodium Chloride 0.9% 1,000 ML IV SCH (04:45)
[2018-06-18 05:02] LABS: Anion Gap 9 mmol/L (10-20); BUN (Urea Nitrogen) 38 mg/dL (9.8-20.1); Calc. Creatinine Clearance 70 mL/min (70-130); Calcium 10.3 mg/dL (7.8-10.44); Carbon Dioxide 30 mmol/L (23-31); Chloride 95 mmol/L (98-107); Estimated GFR-MDRD 47; Glucose 137 mg/dL (83-110); Magnesium 2.2 mg/dL (1.6-2.6); Phosphorus 2.8 mg/dL (2.3-4.7); Potassium 4.4 mmol/L (3.5-5.1); Sodium 130 mmol/L (136-145)
[2018-06-18] MEDS: Levothyroxine 150 MCG TAB PO SCH (05:06)
[2018-06-18] MEDS: Acetaminophen 500 MG TAB PO SCH ×3 (05:06→17:49)
[2018-06-18] MEDS: Hydrocortisone Sod Succ/PF 100 mg/2 ml Vial IVP SCH ×3 (05:06→17:49)
[2018-06-18] MEDS: Mometasone/Formoterol 120 PUFF INHALER INH SCH ×2 (06:29→18:35)
[2018-06-18] MEDS: Sodium Chloride 1 GM TAB PO SCH (09:00)
[2018-06-18] MEDS: Enoxaparin Sodium 30 MG/0.3 ML SYRINGE SC SCH (09:16)
[2018-06-18] MEDS: Bisacodyl 10 MG SUPP PR SCH (09:17)
[2018-06-18] MEDS: Senokot S 8.6-50 MG TAB PO SCH ×2 (09:17→21:07)
[2018-06-18] MEDS: Ascorbic Acid 500 mg Chewable Tablet PO SCH ×2 (09:17→21:07)
[2018-06-18] MEDS: Citalopram 20 MG TAB PO SCH (09:17)
[2018-06-18] MEDS: Polyethylene Glycol 3350 17 GM Packet PO SCH (09:17)
[2018-06-18] MEDS: Docusate 100 MG CAP PO SCH ×2 (09:17→21:07)
[2018-06-18] MEDS: Ferrous Sulfate 325 MG TAB PO SCH ×2 (09:17→21:07)
[2018-06-18] MEDS: Simvastatin 5 MG TAB PO SCH (21:07)
[2018-06-19] MEDS: Hydrocortisone Sod Succ/PF 100 mg/2 ml Vial IVP SCH ×4 (00:02→17:39)
[2018-06-19] MEDS: Acetaminophen 500 MG TAB PO SCH ×4 (00:03→17:30)
[2018-06-19] MEDS: Sodium Chloride 0.9% 1,000 ML IV SCH (02:02)
[2018-06-19] MEDS: DOPamine 400 MG/D5W 250 ML 250 ML IVPB SCH ×2 (04:09→18:27)
[2018-06-19] MEDS: Levothyroxine 150 MCG TAB PO SCH (06:01)
[2018-06-19] MEDS: Mometasone/Formoterol 120 PUFF INHALER INH SCH ×2 (07:18→18:43)
[2018-06-19 08:33] LABS: #Lymphocytes 0.6 thou/uL (1.20-3.40); #Monocytes 0.6 thou/uL (0.11-0.59); #Neutrophils 10.4 thou/uL (1.40-6.50); %Basophils 0.1 % (0.0-1.0); %Eosinophils 0.3 % (0.0-10.0); %Lymphocytes 5.5 % (21.0-51.0); %Monocytes 5.2 % (0.0-10.0); %Neutrophils 88.9 % (42.0-75.0); Hemoglobin 9.3 g/dL (12.0-16.0); Mean Corpuscular HGB CONC 32.3 g/dL (32.0-36.0); Mean Corpuscular Hemoglobin 29.4 pg (27.0-31.0); Mean Corpuscular Volume 91.2 fL (78.0-98.0); Mean Platelet Volume 6.9 fL (7.4-10.4); Platelet Count 215 thou/uL (130-400); RBC Distribution Width 19.3 % (11.5-14.5); Red Blood Cell (RBC) Count 3.18 mill/uL (4.20-5.40); White Blood Cell (WBC) Count 11.7 thou/uL (4.8-10.8)
[2018-06-19 08:56] LABS: Anion Gap 8 mmol/L (10-20); BUN (Urea Nitrogen) 33 mg/dL (9.8-20.1); Calc. Creatinine Clearance 82 mL/min (70-130); Calcium 9.9 mg/dL (7.8-10.44); Carbon Dioxide 31 mmol/L (23-31); Chloride 97 mmol/L (98-107); Estimated GFR-MDRD 55; Glucose 139 mg/dL (83-110); Magnesium 2.1 mg/dL (1.6-2.6); Phosphorus 2.9 mg/dL (2.3-4.7); Potassium 4.1 mmol/L (3.5-5.1); Sodium 132 mmol/L (136-145)
[2018-06-19 09:17] LABS: Free T4 (Free Thyroxine) 0.92 ng/dL (0.70-1.48)
[2018-06-19] MEDS: Docusate 100 MG CAP PO SCH ×2 (09:43→21:20)
[2018-06-19] MEDS: Senokot S 8.6-50 MG TAB PO SCH ×2 (09:43→21:20)
[2018-06-19] MEDS: Ferrous Sulfate 325 MG TAB PO SCH ×2 (09:43→21:20)
[2018-06-19] MEDS: Enoxaparin Sodium 30 MG/0.3 ML SYRINGE SC SCH (09:43)
[2018-06-19] MEDS: Citalopram 20 MG TAB PO SCH (09:43)
[2018-06-19] MEDS: Bisacodyl 10 MG SUPP PR SCH (09:43)
[2018-06-19] MEDS: Polyethylene Glycol 3350 17 GM Packet PO SCH (09:43)
[2018-06-19] MEDS: Ascorbic Acid 500 mg Chewable Tablet PO SCH ×2 (10:07→21:21)
--- NOTE | 2018-06-19 16:16 | PDOC.CTH ---
<Abigail Olmos - Last Filed: 06/19/18 16:16> Cardiology Progress Note - Subjective The pt seen and examined. No overnight events. No cardiac complaints. Back to Afib. - Objective Vital Signs Temp Pulse Resp Pulse Ox 06/19/18 12:00 98.3 F 06/19/18 08:00 98.1 F 69 16 100 06/19/18 07:16 77 17 99 Admit Weight 266 lb Weight 285 lb 11.505 oz 06/18/18 06/19/18 06/20/18 06:59 06:59 06:59 Intake Total 1281 2848 720 Output Total 2245 1776 457 Balance -964 1072 263 - Physical Examination General/Neuro: other: (drawsy, but able to answer questions. ) Lungs: other: (diminished at bases) Heart: other: (irregular) Abdomen: soft Extremities: other: (generalized edema) - Telemetry Telemetry Rhythm: Afib 70-80s - Labs Result Diagrams: 06/19/18 08:30 06/19/18 08:30 Troponin/CKMB CK-MB (CK-2) 1.9 ng/mL (0-6.6) 06/12/18 07:00 Troponin I 0.080 ng/mL (< 0.028) H 06/12/18 07:00 - Assessment/Plan 1. Hypotension - stable with dopamine 3mcg/kg/min. She seems to be somewhat volume depleted. I will hold Lasix and hopefully be able to taper the dopamine. 2. S/p ORIF of LT distal fem. fx on 06/13/18 - stable; On Lovenox 30mg subq qd. managed by orth. 3. Afib - Back to Afib with HR 70-80s; Will start OAC if ok by orth; cont. to monitor 4. PPM placement 2/2 SSS - stable 5. Anemia - stable with Iron supplement 6. Acute on CKD - improving 7. Pulmonary hypertension - Stable. Meds reviewed. Review of Systems - Review of Systems Constitutional: reports: weakness EENTM: reports: no symptoms reported Respiratory: reports: no symptoms reported Cardiac (ROS): reports: no symptoms reported ABD/GI: reports: no symptoms reported : reports: no symptoms reported <Marva Srinivasan - Last Filed: 06/20/18 19:34> Cardiology Progress Note - Objective Vital Signs Temp Pulse Pulse Pulse Resp BP BP 06/20/18 19:18 57 L 16 06/20/18 14:15 62 66 94/44 L 94/47 L 06/20/18 13:00 98.0 F 06/20/18 08:00 97.9 F 61 17 Pulse Ox Pulse Ox Pulse Ox 06/20/18 19:18 99 06/20/18 14:15 100 100 06/20/18 13:00 06/20/18 08:00 100 Admit Weight 266 lb Weight 295 lb 10.238 oz 06/19/18 06/20/18 06/21/18 06:59 06:59 06:59 Intake Total 2848 2812 432 Output Total 1776 1119 835 Balance 1072 1693 -403 - Labs Result Diagrams: 06/20/18 04:05 06/20/18 04:05 Troponin/CKMB CK-MB (CK-2) 1.9 ng/mL (0-6.6) 06/12/18 07:00 Troponin I 0.080 ng/mL (< 0.028) H 06/12/18 07:00 - Assessment/Plan Pt. seen and eval. by me. I agree with the A/P by the COLL[employer] B[employer]ER. Cardiac status is stable. Continue to monitor Afib. rate controlled.
[2018-06-19] MEDS: Simvastatin 5 MG TAB PO SCH (21:20)
[2018-06-20] MEDS: Hydrocortisone Sod Succ/PF 100 mg/2 ml Vial IVP SCH ×4 (00:02→18:12)
[2018-06-20] MEDS: Acetaminophen 500 MG TAB PO SCH ×4 (00:02→18:12)
[2018-06-20 04:27] LABS: #Eosinphils 0.1 thou/uL (0.0-0.7); #Lymphocytes 0.4 thou/uL (1.20-3.40); #Monocytes 0.4 thou/uL (0.11-0.59); #Neutrophils 8.2 thou/uL (1.40-6.50); %Eosinophils 0.6 % (0.0-10.0); %Lymphocytes 4.7 % (21.0-51.0); %Monocytes 4.3 % (0.0-10.0); %Neutrophils 90.4 % (42.0-75.0); Hemoglobin 8.6 g/dL (12.0-16.0); Mean Corpuscular Hemoglobin 30.4 pg (27.0-31.0); Mean Corpuscular Volume 91.9 fL (78.0-98.0); Mean Platelet Volume 7.1 fL (7.4-10.4); Platelet Count 207 thou/uL (130-400); RBC Distribution Width 19.5 % (11.5-14.5); Red Blood Cell (RBC) Count 2.83 mill/uL (4.20-5.40); White Blood Cell (WBC) Count 9.1 thou/uL (4.8-10.8)
[2018-06-20 05:10] LABS: Anion Gap 10 mmol/L (10-20); BUN (Urea Nitrogen) 33 mg/dL (9.8-20.1); Calc. Creatinine Clearance 84 mL/min (70-130); Calcium 9.9 mg/dL (7.8-10.44); Carbon Dioxide 29 mmol/L (23-31); Chloride 98 mmol/L (98-107); Estimated GFR-MDRD 57; Glucose 132 mg/dL (83-110); Magnesium 2.2 mg/dL (1.6-2.6); Phosphorus 3.1 mg/dL (2.3-4.7); Potassium 4.1 mmol/L (3.5-5.1); Sodium 133 mmol/L (136-145)
[2018-06-20] MEDS: Levothyroxine 150 MCG TAB PO SCH (05:47)
[2018-06-20] MEDS: Mometasone/Formoterol 120 PUFF INHALER INH SCH ×2 (07:16→19:21)
--- NOTE | 2018-06-20 08:25 | PRG ---
DATE OF SERVICE: 06/19/2018 This is Lexy Alston, nurse practitioner, student, dictating a progress note for Dr. Gamaliel Corral. SUBJECTIVE: The patient remains on the critical care unit. She is postoperative day #6 status post an open reduction and internal fixation of her left femur fracture. She remains on a dopamine drip t hat we are slowly weaning her off of which was maintained at 7 mcg per kilogram per minute. Urinary output has been maintained at greater than 60 mL per hour. Her pain is controlled and she reports capps ving a decreased appetite. She remains on maintenance fluid of normal saline 50 mL hour. PHYSICAL EXAMINATION: VITAL SIGNS: Blood pressure 101/58, heart rate 75, respirations 20, SpO2 100% nasal cannula at 2 lit ers per minute, temperature is 98.1. HEENT: Unremarkable. CHEST: Clear to auscultation with good inspiratory and expiratory effort. HEART: Heart rate is regular. ABDOMEN: Soft, flat, nontender with active bowel sounds. EXTREMITIES: She is neurovascularly intact x4. LABORATORY DATA AND IMAGING DATA: WBC 11.7, RBC 3.18, hemoglobin 9.3, hematocrit 29.0, platelet coun t 215. Sodium 132, potassium 4.1, chloride 97, CO2 is 31, BUN 33, creatinine 0.95, glucose 139, calc ium 9.9, phosphorus 2.9, magnesium 2.1, free T4 0.92, free T3 less than 1.00. TSH third generation i s 0.1850. No radiographs to review this morning. ASSESSMENT AND PLAN: 1. Status post fall. 2. Status post open reduction and internal fixation of the left femur fracture. 3. Acute blood loss anemia, resolved. 4. Acute kidney injury. 5. Acute hyponatremia. PLAN: We will continue supportive care. We will wean the dopamine to 3 mcg per kilogram per minute with parameter to keep the MAP at 60. She will remain free water restriction. We will repeat labs i n the morning. The patient has been encouraged to eat and has recommended to ask for Mighty shakes a s she does not have an appetite.
[2018-06-20] MEDS: Ferrous Sulfate 325 MG TAB PO SCH ×2 (10:24→20:54)
[2018-06-20] MEDS: Citalopram 20 MG TAB PO SCH (10:24)
[2018-06-20] MEDS: Ascorbic Acid 500 mg Chewable Tablet PO SCH ×2 (10:25→20:54)
[2018-06-20] MEDS: DOPamine 400 MG/D5W 250 ML 250 ML IVPB SCH (10:25)
[2018-06-20] MEDS: Enoxaparin Sodium 30 MG/0.3 ML SYRINGE SC SCH (10:25)
[2018-06-20] MEDS ORDERED: Albumin 25% 25 GM/100 ML BOT IVPB SCH (10:37)
--- NOTE | 2018-06-20 12:26 | RAD ---
ABDOMEN 1 VIEW: Date: 06/20/18 HISTORY: Dobbhoff placement. COMPARISON: None. FINDINGS: Dobbhoff tube is present with tip in the gastric fundus. Mild reverse S-shaped scoliosis. Evaluation for free air is limited by upright exam. IMPRESSION: Dobbhoff tube tip in gastric fundus. POS: MIKE
[2018-06-20] MEDS: Senokot S 8.6-50 MG TAB PO SCH ×2 (14:48→20:55)
[2018-06-20] MEDS: Polyethylene Glycol 3350 17 GM Packet PO SCH (14:48)
[2018-06-20] MEDS: Docusate 100 MG CAP PO SCH ×2 (14:48→20:54)
[2018-06-20] MEDS: Bisacodyl 10 MG SUPP PR SCH (14:48)
--- NOTE | 2018-06-20 16:32 | PDOC.CTH ---
<Abigail Olmos - Last Filed: 06/20/18 16:28> Cardiology Progress Note - Subjective The pt seen and examined. No cardiac complaints. No overnight events. She is more alerted today. - Objective Vital Signs Temp Pulse Pulse Pulse Resp BP BP 06/20/18 14:15 62 66 94/44 L 94/47 L 06/20/18 13:00 98.0 F 06/20/18 08:00 97.9 F 61 17 06/20/18 07:17 06/20/18 07:14 67 18 Pulse Ox Pulse Ox Pulse Ox 06/20/18 14:15 100 100 06/20/18 13:00 06/20/18 08:00 100 06/20/18 07:17 100 06/20/18 07:14 100 Admit Weight 266 lb Weight 295 lb 10.238 oz 06/19/18 06/20/18 06/21/18 06:59 06:59 06:59 Intake Total 2848 2812 172 Output Total 1776 1119 385 Balance 1072 1693 -213 - Physical Examination Neck: no JVD present Lungs: CTA (diminished at bases) Heart: RRR Abdomen: soft Extremities: other: (generalized edema) - Telemetry Telemetry Rhythm: SR - Labs Result Diagrams: 06/20/18 04:05 06/20/18 04:05 Troponin/CKMB CK-MB (CK-2) 1.9 ng/mL (0-6.6) 06/12/18 07:00 Troponin I 0.080 ng/mL (< 0.028) H 06/12/18 07:00 - Assessment/Plan 1. Hypotension - Dopamine drip was d/steven today. BP is stable with schedule Albumin IVs; Cont. to monitor 2. S/p ORIF of LT distal fem. fx on 06/13/18 - stable; On Lovenox 30mg subq qd. managed by orth. 3. Afib - Back to Afib with HR 70-80s; Will start OAC if ok by orth; cont. to monitor 4. PPM placement 2/2 SSS - stable 5. Anemia - Hgb 8.6 today from 9.3 yesterday. 6. Acute on CKD - improving 7. Pulmonary hypertension - Stable. Meds reviewed. Review of Systems - Review of Systems Constitutional: reports: weakness EENTM: reports: no symptoms reported Respiratory: reports: no symptoms reported Cardiac (ROS): reports: no symptoms reported ABD/GI: reports: no symptoms reported : reports: no symptoms reported Musculoskeletal: reports: no symptoms reported <Marva Srinivasan - Last Filed: 06/20/18 18:53> Cardiology Progress Note - Objective Vital Signs Temp Pulse Pulse Pulse Resp BP BP 06/20/18 14:15 62 66 94/44 L 94/47 L 06/20/18 13:00 98.0 F 06/20/18 08:00 97.9 F 61 17 06/20/18 07:17 06/20/18 07:14 67 18 Pulse Ox Pulse Ox Pulse Ox 06/20/18 14:15 100 100 06/20/18 13:00 06/20/18 08:00 100 06/20/18 07:17 100 06/20/18 07:14 100 Admit Weight 266 lb Weight 295 lb 10.238 oz 06/19/18 06/20/18 06/21/18 06:59 06:59 06:59 Intake Total 2848 2812 172 Output Total 1776 1119 385 Balance 1072 1693 -213 - Labs Result Diagrams: 06/20/18 04:05 06/20/18 04:05 Troponin/CKMB CK-MB (CK-2) 1.9 ng/mL (0-6.6) 06/12/18 07:00 Troponin I 0.080 ng/mL (< 0.028) H 06/12/18 07:00 - Assessment/Plan Pt. seen and eval. by me. I agree with the A/P by the [employer] DES[employer]. Chest clear. Irreg/ irreg.
--- NOTE | 2018-06-20 17:14 | PRG ---
DATE OF SERVICE: 06/20/2018 SUBJECTIVE: Ms. Grayson is an 87-year-old woman who is post-admission day #9 status post fall with l eft femur fracture. She is postoperative day #8 status post ORIF of left femur fracture. She has been in the Intensive Care Unit due to low blood pressure supported with dopamine, which was just weaned off today. Urinary output is adequate. The patient is awake and alert today, reporting adequate pain control. Her appetite has been very poor. She consented today and nasogastric tube was placed for enteral nutritional supplementation. OBJECTIVE: VITAL SIGNS: Currently, 4 hours after discontinuation of the dopamine is noted at 95/44, pulse is 62 , respiratory rate is 19. Maximum temperature in the last 24 hours is 98 degrees Fahrenheit. Oxygen saturation is 100% on 2 liters by nasal cannula oxygen. HEENT: Reveals normocephalic and atraumatic. HEART: Reveals regular rate and rhythm, no murmurs or gallops auscultated. LUNGS: Clear to auscultation bilaterally. Her breathing is regular and unlabored. ABDOMEN: Soft, nontender, nondistended. Bowel sounds in all 4 quadrants appear normoactive. EXTREMITIES: Reveals 2+ radial and pedal pulses bilaterally. No ankle edema is present. NEUROLOGIC: Reveals no focal deficits present. LABORATORY DATA: Pertinent laboratory findings today includes a CBC with 9100 white blood cells, hem oglobin and hematocrit is 8.6 and 26.0 respectively, platelet count is 205,000. Metabolic profile: Sodium 133, potassium is 4.1, chloride is 98, bicarbonate is 29, BUN 33, creatinine is 0.93, glucose is 132, magnesium is 2.2, and phosphorus is 3.1. IMPRESSION: 1. Postop day #8 status post open reduction and internal fixation of left femur fracture. 2. Stable acute hyponatremia. 3. Resolved acute cardiac insufficiency. PLAN: 1. Continue enteral nutritional supplementation. 2. Continue with physical and occupational therapy. 3. The patient has been evaluated by PM&R for possible inpatient rehabilitation. 4. The patient will be transferred to general floor today where I will continue the rest of her care . Above findings and plan discussed with the patient who indicates understanding of the information giv en. I have answered her questions.
[2018-06-20] MEDS ORDERED: Sodium Bicarbonate Tab 325 MG TAB PER TUBE PRN (18:43)
[2018-06-20] MEDS ORDERED: Pancrelipase DR 12000 1 CAP FS PRN (18:43)
[2018-06-20] MEDS: Simvastatin 5 MG TAB PO SCH (21:03)
[2018-06-21] MEDS: Acetaminophen 500 MG TAB PO SCH ×4 (00:06→18:48)
[2018-06-21] MEDS: Levothyroxine 150 MCG TAB PO SCH (06:52)
[2018-06-21] MEDS: Mometasone/Formoterol 120 PUFF INHALER INH SCH ×2 (07:05→19:35)
--- NOTE | 2018-06-21 09:09 | RAD ---
KUB: HISTORY: Dobbhoff placement. FINDINGS: The bowel gas pattern appears nonobstructive. A Dobbhoff feeding tube is seen. The tip would be in the fundus or body region of the stomach. IMPRESSION: Dobbhoff feeding tube in the stomach. POS: GARCÍA
[2018-06-21] MEDS: Polyethylene Glycol 3350 17 GM Packet PO SCH (09:41)
[2018-06-21] MEDS: Docusate 100 MG CAP PO SCH ×2 (09:41→21:12)
[2018-06-21] MEDS: Bisacodyl 10 MG SUPP PR SCH (09:41)
[2018-06-21] MEDS: Senokot S 8.6-50 MG TAB PO SCH ×2 (09:42→21:12)
[2018-06-21] MEDS: Ascorbic Acid 500 mg Chewable Tablet PO SCH ×2 (09:44→21:14)
[2018-06-21] MEDS: Citalopram 20 MG TAB PO SCH (09:44)
[2018-06-21] MEDS: Enoxaparin Sodium 30 MG/0.3 ML SYRINGE SC SCH (09:44)
[2018-06-21] MEDS: Ferrous Sulfate 325 MG TAB PO SCH ×2 (09:44→21:13)
--- NOTE | 2018-06-21 14:18 | PDOC.CTH ---
<Abigail Olmos - Last Filed: 06/21/18 14:17> Cardiology Progress Note - Subjective The pt seen and examined. No overnight events. No cardiac complaints. - Objective Vital Signs Temp Pulse Resp BP BP Pulse Ox 06/21/18 11:37 98.2 F 63 18 110/57 L 100 06/21/18 07:36 97.6 F 62 18 115/70 97 06/21/18 07:05 60 16 06/21/18 07:04 99 06/21/18 06:57 60 16 06/21/18 03:54 98.4 F 63 20 134/81 96 06/21/18 03:50 98 Admit Weight 266 lb Weight 294 lb 3.2 oz 06/20/18 06/21/18 06/22/18 06:59 06:59 06:59 Intake Total 2812 492 Output Total 1119 835 Balance 1693 -343 - Physical Examination General/Neuro: alert & oriented x3 Neck: no JVD present Lungs: other: Heart: other: (irregular) Abdomen: soft Extremities: other: (generalized edema) - Labs Result Diagrams: 06/20/18 04:05 06/20/18 04:05 Troponin/CKMB CK-MB (CK-2) 1.9 ng/mL (0-6.6) 06/12/18 07:00 Troponin I 0.080 ng/mL (< 0.028) H 06/12/18 07:00 - Assessment/Plan 1. Hypotension - BP is stable; Cont. to monitor 2. S/p ORIF of LT distal fem. fx on 06/13/18 - stable; On Lovenox 30mg subq qd. managed by orth. 3. Afib - Back to Afib with HR 70-80s; Will start OAC if ok by orth; cont. to monitor 4. PPM placement 2/2 SSS - stable 5. Anemia - Hgb 8.6 today from 9.3 yesterday. 6. Acute on CKD - improving 7. Pulmonary hypertension - Stable. Meds reviewed. Review of Systems - Review of Systems Constitutional: reports: no symptoms reported EENTM: reports: no symptoms reported Respiratory: reports: no symptoms reported Cardiac (ROS): reports: no symptoms reported ABD/GI: reports: no symptoms reported : reports: no symptoms reported Musculoskeletal: reports: no symptoms reported <Marva Srinivasan - Last Filed: 06/21/18 18:42> Cardiology Progress Note - Objective Vital Signs Temp Pulse Resp BP BP Pulse Ox 06/21/18 12:00 97.6 F 66 18 91/53 L 90 L 06/21/18 11:37 98.2 F 63 18 110/57 L 100 06/21/18 08:00 97.6 F 62 18 97 06/21/18 07:36 97.6 F 62 18 115/70 97 06/21/18 07:05 60 16 06/21/18 07:04 99 06/21/18 06:57 60 16 Admit Weight 266 lb Weight 294 lb 3.2 oz 06/20/18 06/21/18 06/22/18 06:59 06:59 06:59 Intake Total 2812 492 30 Output Total 1119 835 Balance 1693 -343 30 - Labs Result Diagrams: 06/20/18 04:05 06/20/18 04:05 Troponin/CKMB CK-MB (CK-2) 1.9 ng/mL (0-6.6) 06/12/18 07:00 Troponin I 0.080 ng/mL (< 0.028) H 06/12/18 07:00 - Assessment/Plan Pt. seen and eval. she pulled her feeding tube out. I agree with the A/P by the FLAT LOCKER. She denies any complaints at this time. Chest clear. RRR with ectopy. Will hold on OAC until the H/H is stable.
--- NOTE | 2018-06-21 15:12 | PQF ---
DATE: 06-21-18 ATTN: DR. SHEREE LEACH Please exercise your independent, professional judgment in responding to the clarification form. Clinical indicators are provided on the bottom of this form for your review Please check appropriate box(s): HEART FAILURE: A. TYPE: [ x] Systolic / HFrEF [ ] Diastolic / HFpEF [ ] Combined Systolic / Diastolic B. ACUITY [ ] Acute [ ] Acute on Chronic [ ] Chronic [ ] Other diagnosis [ ] Unable to determine In addition, please specify: Present on Admission (POA): [ ] Yes [ ] No [ ] Unable to determine For continuity of documentation, please document condition throughout progress notes and discharge summary. Thank You. CLINICAL INDICATORS - SIGNS / SYMPTOMS / LABS Ejection Fraction = 50- 55 % ECHO 06-13-18 BNP: 06-12-18: 352.5 06-15-18: 1764.3 H&P: CHRONIC MEDICAL ILLNESSES: TACHYBRADY SYNDROME, ATRIAL FIBRILLATION, S /P PACEMAKER, PULMONARY HTN, HTN, CHF RISKS: CHRONIC MEDICAL ILLNESSES: TACHYBRADY SYNDROME, ATRIAL FIBRILLATION, S/P PACEMAKER, PULMONARY HTN, HTN, CHF TREATMENTS: H&P: HOME LASIX, METOLAZONE CARDIOLOGY CONSULT (This form is maintained as a part of the permanent medical record) 2015 [employer]. All Rights Reserved CONG [email or web address] Office: [phone] AGUSTIN
[2018-06-21] MEDS ORDERED: Albumin 25% 25 GM/100 ML BOT IVPB SCH (16:09)
[2018-06-21] MEDS: Simvastatin 5 MG TAB PO SCH (21:14)
[2018-06-22] MEDS: Acetaminophen 500 MG TAB PO SCH ×5 (00:11→23:32)
[2018-06-22] MEDS: Levothyroxine 150 MCG TAB PO SCH (05:44)
[2018-06-22] MEDS: Mometasone/Formoterol 120 PUFF INHALER INH SCH ×2 (09:21→18:57)
[2018-06-22] MEDS: Bisacodyl 10 MG SUPP PR SCH (09:52)
[2018-06-22] MEDS: Citalopram 20 MG TAB PO SCH (09:52)
[2018-06-22] MEDS: Enoxaparin Sodium 30 MG/0.3 ML SYRINGE SC SCH (09:52)
[2018-06-22] MEDS: Ferrous Sulfate 325 MG TAB PO SCH ×2 (09:52→21:22)
[2018-06-22] MEDS: Ascorbic Acid 500 mg Chewable Tablet PO SCH ×2 (09:52→21:23)
[2018-06-22] MEDS: Polyethylene Glycol 3350 17 GM Packet PO SCH (09:53)
[2018-06-22] MEDS: Docusate 100 MG CAP PO SCH ×2 (09:53→21:23)
[2018-06-22] MEDS: Senokot S 8.6-50 MG TAB PO SCH ×2 (09:53→21:23)
--- NOTE | 2018-06-22 10:28 | PDOC.CTH ---
<Abigail Olmos - Last Filed: 06/22/18 10:26> Cardiology Progress Note - Subjective The pt seen and examined. No overnight events. No cardiac complaints. Up to Cardiac chair without any difficulties. - Objective Vital Signs Temp Pulse Resp BP BP Pulse Ox 06/22/18 09:21 59 L 20 97 06/22/18 09:20 59 L 20 97 06/22/18 07:32 97.7 F 63 20 136/82 94 L 06/22/18 04:32 98.2 F 64 16 102/59 L 92 L 06/22/18 00:53 97.7 F 61 20 102/62 99 Admit Weight 266 lb Weight 299 lb 06/21/18 06/22/18 06/23/18 06:59 06:59 06:59 Intake Total 492 270 Output Total 835 400 Balance -343 -130 - Physical Examination Neck: no JVD present Lungs: other: (diminished at bases) Heart: other: (irregular) Abdomen: soft Extremities: other: (generalized edema) - Labs Result Diagrams: 06/20/18 04:05 06/20/18 04:05 Troponin/CKMB CK-MB (CK-2) 1.9 ng/mL (0-6.6) 06/12/18 07:00 Troponin I 0.080 ng/mL (< 0.028) H 06/12/18 07:00 - Assessment/Plan 1. Hypotension - BP is stable; Cont. to monitor 2. S/p ORIF of LT distal fem. fx on 06/13/18 - stable; On Lovenox 30mg subq qd. managed by orth. 3. Afib - irregularly to irregular by auscultation; Will hold on OAC until the H /H is stable. Cont. to monitor 4. PPM placement 2/2 SSS - stable 5. Anemia - Hgb 8.6 today from 9.3 yesterday. 6. Acute on CKD - 7. Pulmonary hypertension - Stable. Meds reviewed. Review of Systems - Review of Systems Constitutional: reports: weakness EENTM: reports: no symptoms reported Respiratory: reports: no symptoms reported Cardiac (ROS): reports: no symptoms reported ABD/GI: reports: no symptoms reported : reports: no symptoms reported Musculoskeletal: reports: joint pain <Marva Srinivasan - Last Filed: 06/22/18 20:23> Cardiology Progress Note - Objective Vital Signs Temp Pulse Resp BP BP Pulse Ox 06/22/18 20:00 97.5 F L 61 14 100/63 94 L 06/22/18 18:59 61 16 92 L 06/22/18 18:57 61 16 92 L 06/22/18 15:50 97.5 F L 61 18 110/60 92 L 06/22/18 12:00 97.6 F 62 18 118/80 95 06/22/18 09:50 97.7 F 63 20 06/22/18 09:21 59 L 20 97 06/22/18 09:20 59 L 20 97 Admit Weight 266 lb Weight 299 lb 06/21/18 06/22/18 06/23/18 06:59 06:59 06:59 Intake Total 492 270 280 Output Total 835 400 550 Balance -343 -130 -270 - Labs Result Diagrams: 06/20/18 04:05 06/22/18 12:31 Troponin/CKMB CK-MB (CK-2) 1.9 ng/mL (0-6.6) 06/12/18 07:00 Troponin I 0.080 ng/mL (< 0.028) H 06/12/18 07:00 - Assessment/Plan Pt. seen and eval. by me. I agree with the A/P by the FINISHED CLOTH CHECKER.Still not eating well. Plan to transfer to SNU likely.Cardiac status is stable. I will sign off. Given overall physical condition, I would hold OAC for the Afib. and try ASA only. Can continue DVT prophylaxis with lovenox.
[2018-06-22 12:55] LABS: Anion Gap 10 mmol/L (10-20); BUN (Urea Nitrogen) 34 mg/dL (9.8-20.1); Calc. Creatinine Clearance 79 mL/min (70-130); Calcium 9.4 mg/dL (7.8-10.44); Carbon Dioxide 30 mmol/L (23-31); Chloride 98 mmol/L (98-107); Estimated GFR-MDRD 50; Glucose 121 mg/dL (83-110); Magnesium 2.2 mg/dL (1.6-2.6); Phosphorus 2.9 mg/dL (2.3-4.7); Potassium 3.6 mmol/L (3.5-5.1); Sodium 134 mmol/L (136-145)
--- NOTE | 2018-06-22 16:29 | PRG ---
DATE OF SERVICE: 06/22/2018 SUBJECTIVE: Ms. Grayson is an 87-year-old woman who is postoperative day #9 status post ORIF of femu r fracture. She is more alert and interactive today. Appetite is slightly improving. She denies any dyspnea, syncope or chest pain. She reports adequate pain control. OBJECTIVE: VITAL SIGNS: This morning includes blood pressure 118/80, pulse 62, respiratory rate is 18, temperat ure is 97.6 degrees Fahrenheit, oxygen saturation 95% on 2 liters by nasal cannula oxygen. HEART: Reveals regular rate and rhythm. No murmurs or gallops auscultated. LUNGS: Clear to auscultation bilaterally. Breathing is regular and unlabored. ABDOMEN: Soft, nontender, nondistended. EXTREMITIES: Reveals 2+ radial and pedal pulses bilaterally. No ankle edema is present. NEUROLOGIC: Reveals no focal deficits present. LABORATORY DATA: Pertinent laboratory findings today includes metabolic profile: Sodium 134, potass ium is 3.6, chloride is 98, bicarbonate is 30, BUN 34, creatinine is 1.03, glucose is 121, magnesium 2.2, phosphorus 2.9. IMPRESSION: 1. Postop day #9, status post open reduction internal fixation of femur fracture. 2. Resolving acute metabolic encephalopathy. PLAN: 1. Continue with physical and occupational therapy. 2. I encouraged the patient to increase her oral intake. 3. She was able to drink a can of Ensure in my presence. 4. We will advance her diet as tolerated. 5. We will initiate PM and R evaluation for possible inpatient rehabilitation post-discharge.
[2018-06-22] MEDS: Simvastatin 5 MG TAB PO SCH (21:23)
[2018-06-22] MEDS: Megestrol Acetate 40 MG TAB PO SCH (21:53)
[2018-06-23 04:21] LABS: #Eosinphils 0.2 thou/uL (0.0-0.7); #Lymphocytes 0.7 thou/uL (1.20-3.40); #Monocytes 0.7 thou/uL (0.11-0.59); #Neutrophils 7.8 thou/uL (1.40-6.50); %Basophils 0.1 % (0.0-1.0); %Eosinophils 1.6 % (0.0-10.0); %Lymphocytes 7.4 % (21.0-51.0); %Monocytes 7.4 % (0.0-10.0); %Neutrophils 83.5 % (42.0-75.0); Hemoglobin 8.8 g/dL (12.0-16.0); Mean Corpuscular HGB CONC 32.1 g/dL (32.0-36.0); Mean Corpuscular Hemoglobin 30.2 pg (27.0-31.0); Mean Corpuscular Volume 93.9 fL (78.0-98.0); Mean Platelet Volume 7.4 fL (7.4-10.4); Platelet Count 242 thou/uL (130-400); RBC Distribution Width 20.6 % (11.5-14.5); Red Blood Cell (RBC) Count 2.92 mill/uL (4.20-5.40); White Blood Cell (WBC) Count 9.4 thou/uL (4.8-10.8)
[2018-06-23 04:31] LABS: Anion Gap 12 mmol/L (10-20); BUN (Urea Nitrogen) 30 mg/dL (9.8-20.1); Calc. Creatinine Clearance 93 mL/min (70-130); Calcium 9.5 mg/dL (7.8-10.44); Carbon Dioxide 28 mmol/L (23-31); Chloride 99 mmol/L (98-107); Estimated GFR-MDRD 61; Glucose 119 mg/dL (83-110); Magnesium 2.2 mg/dL (1.6-2.6); Phosphorus 2.8 mg/dL (2.3-4.7); Potassium 3.5 mmol/L (3.5-5.1); Sodium 135 mmol/L (136-145)
[2018-06-23] MEDS: Levothyroxine 150 MCG TAB PO SCH (05:24)
[2018-06-23] MEDS: Acetaminophen 500 MG TAB PO SCH ×2 (05:24→12:38)
[2018-06-23] MEDS: Mometasone/Formoterol 120 PUFF INHALER INH SCH (07:25)
[2018-06-23] MEDS ORDERED: Potassium Phosphate 30 MMOL in Sodium Chloride 0.9% 250 ML 250 ML IVPB SCH (08:45)
[2018-06-23] MEDS: Docusate 100 MG CAP PO SCH (08:48)
[2018-06-23] MEDS: Enoxaparin Sodium 30 MG/0.3 ML SYRINGE SC SCH (08:48)
[2018-06-23] MEDS: Ascorbic Acid 500 mg Chewable Tablet PO SCH (08:48)
[2018-06-23] MEDS: Ferrous Sulfate 325 MG TAB PO SCH (08:49)
[2018-06-23] MEDS: Bisacodyl 10 MG SUPP PR SCH (08:49)
[2018-06-23] MEDS: Polyethylene Glycol 3350 17 GM Packet PO SCH (08:49)
[2018-06-23] MEDS: Senokot S 8.6-50 MG TAB PO SCH (08:49)
[2018-06-23] MEDS: Citalopram 20 MG TAB PO SCH (08:49)
[2018-06-23] MEDS: Megestrol Acetate 40 MG TAB PO SCH (09:44)
[2018-06-23 12:02] VITALS: BP 128/80; TEMP 97.6
[2018-06-23 13:48] VITALS: BMI 48.2
== END 2018-06-23 14:45 | DRG 480 ==
LOC: ERS 09:54 → IMCU/EMU 15:20 → CCU 06-13 14:32 → SURG A 06-20 17:17
PROVIDERS: ADMIT Orthopaedic Surgery; ATTEND Orthopaedic Surgery
PROC: 30233N1 Transfusion of Nonautologous Red Blood Cells into Peripheral Vein, Percutaneous Approach (ICD-10-PCS; principal; 2018-06-12)
PROC: 02HV33Z Insertion of Infusion Device into Superior Vena Cava, Percutaneous Approach (ICD-10-PCS; 2018-06-12)
PROC: 3E043XZ Introduction of Vasopressor into Central Vein, Percutaneous Approach (ICD-10-PCS; 2018-06-12)
PROC: 0QSC06Z Reposition Left Lower Femur with Intramedullary Internal Fixation Device, Open Approach (ICD-10-PCS; 2018-06-13)
DX: S72.492A Other fracture of lower end of left femur, initial encounter for closed fracture (principal); R57.8 Other shock; G93.41 Metabolic encephalopathy; N39.0 Urinary tract infection, site not specified; N17.9 Acute kidney failure, unspecified; E87.1 Hypo-osmolality and hyponatremia; D62 Acute posthemorrhagic anemia; I13.0 Hypertensive heart and chronic kidney disease with heart failure and stage 1 through stage 4 chronic kidney disease, or unspecified chronic kidney disease; I50.20 Unspecified systolic (congestive) heart failure; Z68.42 Body mass index [BMI] 45.0-49.9, adult; G89.29 Other chronic pain; I48.0 Paroxysmal atrial fibrillation; Z95.0 Presence of cardiac pacemaker; F03.90 Unspecified dementia, unspecified severity, without behavioral disturbance, psychotic disturbance, mood disturbance, and anxiety; J44.9 Chronic obstructive pulmonary disease, unspecified; D63.1 Anemia in chronic kidney disease; Z66 Do not resuscitate; I27.20 Pulmonary hypertension, unspecified; N18.9 Chronic kidney disease, unspecified; E66.9 Obesity, unspecified; E87.6 Hypokalemia; M25.511 Pain in right shoulder; Z86.711 Personal history of pulmonary embolism; R74.8 Abnormal levels of other serum enzymes; Z85.3 Personal history of malignant neoplasm of breast; Z79.891 Long term (current) use of opiate analgesic; Z79.01 Long term (current) use of anticoagulants; Z99.3 Dependence on wheelchair; W06.XXXA Fall from bed, initial encounter; Y92.122 Bedroom in nursing home as the place of occurrence of the external cause
CPT/HCPCS: 36415; 36416; 36430; 51702; 70450; 71045; 72125; 72170; 74018; 76001; 80048; 80053; 81003; 81015; 82040; 82533; 82553; 82805; 83605; 83735; 83880; 84100; 84134; 84439; 84443; 84481; 84484; 85025; 85027; 85610; 86850; 86870; 86900; 86901; 86922; 87040; 87086; 93005; 93306; 94640; C1713; C1769; G0390; G8978-GP-CM; G8979-GP-CL; G8987-GO-CM; G8988-GO-CK; J0131; J1265; J1642; J1650; J1720; J1940; J2001; J2405; J3010; J3480; J7050; J7620; P9016; P9045; P9047; Q0162; S0179